=== PATIENT | male | born 1935 | race Caucasian/White ===

== ENCOUNTER 2017-10-30 15:59 | Inpatient (IN) | payer OTHER ==
[2017-10-30 17:50] LABS: Absolute Lymphocytes (CBC) 0.4 K/uL (0.7-4.9); Absolute Monocytes 0.3 K/uL (0.1-1.3); Absolute Neutrophil 0.8 K/uL (1.8-8.0); Basophils % 0.5 % (0-1.3); Eosinophils % 0.7 % (0-4.4); Hematocrit 39.2 % (39.6-49.0); Lymphocytes % 25.8 % (15.3-44.8); MCH 30.6 pg (27.0-35.0); MCV 92.9 fL (80-100); MPV 9.1 fL (7.6-11.3); Monocytes % 20.4 % (3.3-12.3); RBC Red Blood Cell Count 4.23 M/uL (4.33-5.43)
[2017-10-30 18:08] LABS: Albumin 4.5 g/dL (3.2-5.5); Bilirubin Direct 0.1 mg/dL (0-0.2); Bilirubin Total 0.9 mg/dL (0.3-1.2); Protein, Total 7.7 g/dL (6.0-8.3)
[2017-10-30 18:09] LABS: Potassium 5.5 mEq/L (3.6-5.0)
[2017-10-30 18:13] LABS: Protime INR 1.65
--- NOTE | 2017-10-30 18:21 | RAD REPORT ---
EXAM DESCRIPTION: RAD - Chest Single View - 10/30/2017 6:15 pm CLINICAL HISTORY: Chest pain. COMPARISON: 09/03/2017 FINDINGS: Portable technique limits examination quality. Emphysematous changes are present bilaterally. Postsurgical clips are also present. The heart is norm al in size. No displaced fractures. IMPRESSION: No acute intrathoracic process suspected.
[2017-10-30 18:27] LABS: CKMB Creatine Kinase MB 3.9 ng/ml (0.3-4.0)
[2017-10-30 18:43] LABS: Platelet Estimate ADEQ; Platelets, Giant FEW
[2017-10-30 18:44] LABS: Anisocytosis SLIGHT; Blood Morphology Comment NOTED (NOT SEEN)
--- NOTE | 2017-10-30 19:30 | ER ---
Nurse's Notes [facility] Name: Viral Kim Age: 82 yrs Sex: Male : 1935 Arrival Date: 10/30/2017 Time: 16:02 Bed 14 Private MD: Diagnosis: Hypomagnesemia;Hyperkalemia;Weakness Presentation: 10/30 16:16 Presenting complaint: Patient states: from [facility], for days now, he is a getting a hj little weaker, loss of appetite; denies fever and chills; denies abd pain;. Transition of care: patient was not received from another setting of care. Onset of symptoms was October 30, 2017. Care prior to arrival: None. 16:16 Method Of Arrival: Ambulatory 16:16 Acuity: BONG 3 hj Triage Assessment: 16:24 General: Appears in no apparent distress. uncomfortable, Behavior is calm, cooperative, hj appropriate for age. Pain: Denies pain. Historical: - Allergies: 16:23 No Known Allergies; hj - Home Meds: 16:23 acetaminophen 325 mg Oral tab 2 tabs every 6 hours for temp or pain [Active]; hj atorvastatin 40 mg Oral tab [Active]; donepezil 10 mg Oral tab 1 tab twice a day [Active]; Eliquis 5 mg Oral tab 1 tab 2 times per day [Active]; Fish Oil 1,000 mg Oral cap [Active]; lisinopril 5 mg Oral tab [Active]; memantine 10 mg Oral tab 0.5 tab 2 times per day [Active]; metoprolol tartrate 25 mg Oral tab 0.5 tab 2 times per day [Active]; Multiple Vitamins Oral tab 1 tab daily [Active]; pantoprazole 40 mg Oral TbEC 1 tab once daily [Active]; ProAir HFA 90 mcg/actuation inhalation HFAA 1 puff every 4 hours for Breathing [Active]; Symbicort inhalation [Active]; metformin 500 mg Oral tr24 1 tab three times a day [Active]; - PMHx: 16:23 AAA; COPD; CVA; Depression; Diabetes - NIDDM; DVT; Left Femur; Lung CA; hj - PSHx: 16:23 Lobectomy; Hip replacement; Left Femur (Chuy Placement); hj - Immunization history:: Adult Immunizations up to date. - Social history:: Smoking status: Patient/guardian denies using tobacco. - Hospitalizations: : No recent hospitalization is reported. - History obtained from: friend. Screenin:40 Abuse screen: Denies threats or abuse. Denies injuries from another. Nutritional aj1 screening: No deficits noted. Tuberculosis screening: No symptoms or risk factors identified. 22:08 Fall Risk Fall in past 12 months (25 points). Secondary diagnosis (15 points) dementia, aj1 IV access (20 points). Ambulatory Aid- None/Bed Rest/Nurse Assist (0 pts). Gait- Impaired (20 pts.). Mental Status- Overestimates/Forgets Limitations (15 pts.). Total Cash Fall Scale indicates High Risk Score (45 or more points). Frequent Obs/Assessments Occuring Family Present and informed to notify staff if the need to leave the bedside As available patient and family educated on Fall Prevention Program and Strategies. Assessment: 16:50 General: Appears in no apparent distress. uncomfortable, Behavior is calm, cooperative, aj1 appropriate for age. Pain: Denies pain. Neuro: Level of Consciousness is awake, alert, obeys commands, [employer] are equal bilaterally Moves all extremities. Full function Speech is normal, Facial symmetry appears normal, Reports weakness to entire body Patient's family states that they have found him on the floor twice in the past few weeks. Denies blurred vision numbness headache. Cardiovascular: Denies chest pain, palpitations, shortness of breath, Heart tones S1 S2 present Patient's skin is warm and dry. Rhythm is regular. Respiratory: Airway is patent Respiratory effort is even, unlabored, Respiratory pattern is regular, symmetrical. GI: No signs and/or symptoms were reported involving the gastrointestinal system. : No signs and/or symptoms were reported regarding the genitourinary system. EENT: No signs and/or symptoms were reported regarding the EENT system. Derm: Skin is pink, warm \\T\\ dry. normal, Parent/caregiver reports the patient having patient was looking "pale and ashen" earlier and they were advised by staff at [facility] to take patient to the ER for evaluation. States that patient has not wanted to leave his room at all, he does not want to go to the day room and he does not want to go to the dining room for meals and has in general not been acting like himself for the past 2 weeks. Musculoskeletal: No signs and/or symptoms reported regarding the musculoskeletal system. Circulation, motion, and sensation intact. Vital Signs: 16:24 BP 123 / 59; Pulse 77; Resp 20; Temp 98.7(O); Pulse Ox 95% on R/A; Weight 80.29 kg; hj Height 5 ft. 11 in. (180.34 cm); Pain 0/10; 17:15 BP 127 / 67; Pulse 75; Resp 18; Pulse Ox 94% ; aj1 18:15 BP 129 / 61; Pulse 61; Resp 28; Pulse Ox 96% ; aj1 18:50 BP 132 / 63; Pulse 78; Resp 28; Pulse Ox 95% ; aj1 20:45 BP 147 / 68; Pulse 77; Resp 22; Pulse Ox 94% ; aj1 21:45 BP 139 / 66; Pulse 71; Resp 24; Temp 97.9(TE); Pulse Ox 95% on R/A; aj1 16:24 Body Mass Index 24.69 (80.29 kg, 180.34 cm) ED Course: 16:02 Patient arrived in ED. mr 16:20 Triage completed. hj 16:24 Arm band placed on right wrist. hj 16:46 Bhavya Mayers, RN is Primary Nurse. aj1 16:50 Patient has correct armband on for positive identification. Bed in low position. Call aj1 light in reach. Side rails up X 1. Adult w/ patient. classroom monitor on. Pulse ox on. NIBP on. 16:50 No provider procedures requiring assistance completed. aj1 17:17 [facility] kav 17:17 Guevara Mccormick MD is Attending Physician. kav 17:35 EKG done, by weatherseal technician. reviewed by Guevara Mccormick MD. tc 18:14 X-ray completed. Portable x-ray completed in exam room. Patient tolerated procedure kc2 well. 19:13 Inserted saline lock: 22 gauge in right antecubital area, using aseptic technique. mh5 Blood collected. 19:28 Sundar Infante MD is Hospitalizing Provider. kav 22:08 Patient admitted, IV remains in place. aj1 Administered Medications: 19:32 Drug: Magnesium Sulfate 2 grams Route: IVPB; Infused Over: 2 hrs; Site: right aj1 antecubital; 22:00 Follow up: IV Status: Completed infusion; IV Intake: 50ml [facility] 19:32 Drug: NS 0.9% 1000 ml Route: IV; Rate: 100 ml/hr; Site: right antecubital; aj1 :02 Follow up: IV Status: Completed infusion; IV Intake: 1000ml [facility] 19:32 Drug: Kayexalate 30 grams Route: PO; aj1 22:02 Follow up: Response: No adverse reaction aj Point of Care Testing: Blood Glucose: 19:43 Blood Glucose: 96 mg/dL; mt Ranges: Intake: 22:00 IV: 50ml; Total: 50ml. aj1 22:02 IV: 1000ml; Total: 1050ml. aj Outcome: 19:29 Decision to Hospitalize by Provider. ka 22:09 Admitted to [facility] accompanied by karely, via stretcher, Report called to RAJI Brunner on 4th [facility] floor 22:09 Condition: stable 22:09 Discharge instructions given to patient, family, Instructed on the need for admit, Demonstrated understanding of instructions. 22:09 Patient left the ED. aj Signatures: Bhavya Mayers RN RN aj1 Alexandra Camargo, SHOT HOLE SHOOTER SHOT HOLE SHOOTER Maritza Bundy mr Joaquina Garnerfany, top lift trimmer EKG Ttc Norberto Reyes RN Tereza Rodriguez Maria [facility] Aline Bills ia Corrections: (The following items were deleted from the chart) 18:48 18:40 General: Appears in no apparent distress. uncomfortable, Behavior is calm, aj1 cooperative, appropriate for age, aj1 18:48 18:40 Pain: Denies pain. aj1 aj1 18:48 18:40 Neuro: Level of Consciousness is awake, alert, obeys commands, [employer] are equal aj1 bilaterally Moves all extremities. Full function Speech is normal, Facial symmetry appears normal, Reports weakness to entire body Patient's family states that they have found him on the floor twice in the past few weeks. Denies blurred vision numbness headache aj1 18:48 18:40 Cardiovascular: Denies chest pain, palpitations, shortness of breath, Heart tones aj1 S1 S2 present Patient's skin is warm and dry. Rhythm is regular aj1 18:48 18:40 Respiratory: Airway is patent Respiratory effort is even, unlabored, Respiratory aj1 pattern is regular, symmetrical, aj1 :48 18:40 GI: No signs and/or symptoms were reported involving the gastrointestinal system. aj1 aj1 :48 18:40 : No signs and/or symptoms were reported regarding the genitourinary system. aj1aj1 18:48 18:40 EENT: No signs and/or symptoms were reported regarding the EENT system. aj1 aj1 18:48 18:40 Derm: Skin is pink, warm \\T\\ dry. normal, Parent/caregiver reports the patient aj1 having patient was looking "pale and ashen" earlier and they were advised by staff at [facility] to take patient to the ER for evaluation. States that patient has not wanted to leave his room at all, he does not want to go to the day room and he does not want to go to the dining room for meals and has in general not been acting like himself for the past 2 weeks aj1 18:48 18:40 Musculoskeletal: No signs and/or symptoms reported regarding the musculoskeletal aj1 system. Circulation, motion, and sensation intact. aj1
--- NOTE | 2017-10-30 19:30 | EDPHYS ---
Physician Documentation [facility] Name: Viral Kim Age: 82 yrs Sex: Male : 1935 Arrival Date: 10/30/2017 Time: 16:02 Bed 14 Private MD: ED Physician Guevara Mccormick HPI: 10/30 17:16 This 82 yrs old Male presents to ER via Ambulatory with complaints of kav Weakness, Decreased Appetite. 19:01 generalized weakness and decreased appetite from assisted living faciltiy. Onset: The kav symptoms/episode began/occurred acutely, 1 week(s) ago. Severity of symptoms: At their worst the symptoms were mild 2 day(s) ago, in the emergency department the symptoms are unchanged. The patient has not experienced similar symptoms in the past. The patient has not recently seen a physician. 82 y/o male patient from assisted living facility who has chief c/o acute onset of generalized weakness and decreased appetite x 1 week. Historical: - Allergies: 16:23 No Known Allergies; hj - Home Meds: 16:23 acetaminophen 325 mg Oral tab 2 tabs every 6 hours for temp or pain [Active]; hj atorvastatin 40 mg Oral tab [Active]; donepezil 10 mg Oral tab 1 tab twice a day [Active]; Eliquis 5 mg Oral tab 1 tab 2 times per day [Active]; Fish Oil 1,000 mg Oral cap [Active]; lisinopril 5 mg Oral tab [Active]; memantine 10 mg Oral tab 0.5 tab 2 times per day [Active]; metoprolol tartrate 25 mg Oral tab 0.5 tab 2 times per day [Active]; Multiple Vitamins Oral tab 1 tab daily [Active]; pantoprazole 40 mg Oral TbEC 1 tab once daily [Active]; ProAir HFA 90 mcg/actuation inhalation HFAA 1 puff every 4 hours for Breathing [Active]; Symbicort inhalation [Active]; metformin 500 mg Oral tr24 1 tab three times a day [Active]; - PMHx: 16:23 AAA; COPD; CVA; Depression; Diabetes - NIDDM; DVT; Left Femur; Lung CA; hj - PSHx: 16:23 Lobectomy; Hip replacement; Left Femur (Chuy Placement); hj - Immunization history:: Adult Immunizations up to date. - Social history:: Smoking status: Patient/guardian denies using tobacco. - Hospitalizations: : No recent hospitalization is reported. - History obtained from: friend. ROS: 19:26 Constitutional: Negative for fever, chills, and weight loss, Eyes: Negative for injury, kav pain, redness, and discharge, ENT: Negative for injury, pain, and discharge, Neck: Negative for injury, pain, and swelling, Cardiovascular: Negative for chest pain, palpitations, and edema, Respiratory: Negative for shortness of breath, cough, wheezing, and pleuritic chest pain, Back: Negative for injury and pain, MS/Extremity: Negative for injury and deformity, Skin: Negative for injury, rash, and discoloration, Neuro: Negative for headache, weakness, numbness, tingling, and seizure, Psych: Negative for depression, anxiety, suicide ideation, homicidal ideation, and hallucinations, Allergy/Immunology: Negative for hives, rash, and allergies, Endocrine: Negative for neck swelling, polydipsia, polyuria, polyphagia, and marked weight changes, Hematologic/Lymphatic: Negative for swollen nodes, abnormal bleeding, and unusual bruising. 19:26 Constitutional: Positive for generalized weakness. 19:26 Abdomen/GI: Positive for loss of appetite. Exam: 19:26 Constitutional: This is a well developed, well nourished patient who is awake, alert, kav and in no acute distress. Head/Face: Normocephalic, atraumatic. Eyes: Pupils equal round and reactive to light, extra-ocular motions intact. Lids and lashes normal. Conjunctiva and sclera are non-icteric and not injected. Cornea within normal limits. Periorbital areas with no swelling, redness, or edema. ENT: Nares patent. No nasal discharge, no septal abnormalities noted. Tympanic membranes are normal and external auditory canals are clear. Oropharynx with no redness, swelling, or masses, exudates, or evidence of obstruction, uvula midline. Mucous membranes moist. Neck: Trachea midline, no thyromegaly or masses palpated, and no cervical lymphadenopathy. Supple, full range of motion without nuchal rigidity, or vertebral point tenderness. No Meningismus. Chest/axilla: Normal chest wall appearance and motion. Nontender with no deformity. No lesions are appreciated. Cardiovascular: Regular rate and rhythm with a normal S1 and S2. No gallops, murmurs, or rubs. Normal PMI, no JVD. No pulse deficits. Respiratory: Lungs have equal breath sounds bilaterally, clear to auscultation and percussion. No rales, rhonchi or wheezes noted. No increased work of breathing, no retractions or nasal flaring. Abdomen/GI: Soft, non-tender, with normal bowel sounds. No distension or tympany. No guarding or rebound. No evidence of tenderness throughout. Skin: Warm, dry with normal turgor. Normal color with no rashes, no lesions, and no evidence of cellulitis. MS/ Extremity: Pulses equal, no cyanosis. Neurovascular intact. Full, normal range of motion. Neuro: Awake and alert, GCS 15, oriented to person, place, time, and situation. Cranial nerves II-XII grossly intact. Motor strength 5/5 in all extremities. Sensory grossly intact. Cerebellar exam normal. Normal gait. Psych: Awake, alert, with orientation to person, place and time. Behavior, mood, and affect are within normal limits. Vital Signs: 16:24 BP 123 / 59; Pulse 77; Resp 20; Temp 98.7(O); Pulse Ox 95% on R/A; Weight 80.29 kg; hj Height 5 ft. 11 in. (180.34 cm); Pain 0/10; 17:15 BP 127 / 67; Pulse 75; Resp 18; Pulse Ox 94% ; aj1 18:15 BP 129 / 61; Pulse 61; Resp 28; Pulse Ox 96% ; aj1 18:50 BP 132 / 63; Pulse 78; Resp 28; Pulse Ox 95% ; aj1 20:45 BP 147 / 68; Pulse 77; Resp 22; Pulse Ox 94% ; aj1 21:45 BP 139 / 66; Pulse 71; Resp 24; Temp 97.9(TE); Pulse Ox 95% on R/A; aj1 16:24 Body Mass Index 24.69 (80.29 kg, 180.34 cm) MDM: 17:17 Patient medically screened. formerly [facility] 19:26 Data reviewed: vital signs, nurses notes, lab test result(s), CBC, electrolytes, EKG, ka radiologic studies. 10/30 17:17 Order name: Amylase, Serum formerly [facility] 10/30 17:17 Order name: Basic Metabolic Panel formerly [facility] 10/30 17:17 Order name: CBC with Diff 10/30 17:17 Order name: Creatinine for Radiology 10/30 17:17 Order name: Hepatic Function 10/30 17:17 Order name: Lipase 10/30 17:17 Order name: Urine Microscopic Only 10/30 17:32 Order name: BNP 10/30 17:32 Order name: Ckmb 10/30 17:32 Order name: CPK 10/30 17:32 Order name: Magnesium 10/30 17:32 Order name: PT-INR 10/30 17:32 Order name: Ptt, Activated 10/30 17:32 Order name: Troponin (emerg Dept Use Only) 10/30 17:32 Order name: XRAY Chest (1 view) 10/30 17:57 Order name: Basic Metabolic Panel; Complete Time: 18:48 EDMS 10/30 18:49 Interpretation: BUN 54; CRE 3.35; GFR 18; K 5.5. 10/30 17:57 Order name: Lipase; Complete Time: 18:47 EDMS 10/30 18:47 Interpretation: Within normal limits. 10/30 17:58 Order name: CBC with Automated Diff; Complete Time: 18:48 EDMS 10/30 18:50 Interpretation: WBC 1.6; RBC 4.23; HGB 12.9; HCT 39.2; RDW 16.2; MN% 20.4; NEUT A 0.8; kav LYMA 0.4. 10/30 18:01 Order name: Creatinine (Radiology Only); Complete Time: 18:48 EDMS 10/30 18:50 Interpretation: CRE 3.21; GFR 19. 10/30 18:08 Order name: Liver (Hepatic) Function; Complete Time: 18:47 EDMS 10/30 18:47 Interpretation: Within normal limits. 10/30 18:08 Order name: Amylase Level; Complete Time: 18:47 EDMS 10/30 18:47 Interpretation: Within normal limits. 10/30 18:11 Order name: BNP B-Type Natriuretic Peptide; Complete Time: 18:47 EDMS 10/30 18:47 Interpretation: Within normal limits. 10/30 18:21 Order name: Protime (+INR); Complete Time: 18:48 EDMS 10/30 18:50 Interpretation: Normal except: PT 19.6. kav 10/30 18:21 Order name: PTT, Activated Partial Thromb; Complete Time: 18:48 EDMS 10/30 18:48 Interpretation: Within normal limits. v 10/30 18:22 Order name: RAD; Complete Time: 18:48 EDMS 10/30 18:48 Interpretation: No acute disease. v 10/30 18:23 Order name: Creatine Phosphokinase; Complete Time: 18:48 EDMS 10/30 18:48 Interpretation: Within normal limits. v 10/30 18:25 Order name: Troponin (Emerg Dept Use Only); Complete Time: 18:48 EDMS 10/30 18:48 Interpretation: Within normal limits. v 10/30 18:27 Order name: CKMB Creatine Kinase MB; Complete Time: 18:48 EDMS 10/30 18:48 Interpretation: Within normal limits. v 10/30 18:41 Order name: Magnesium; Complete Time: 18:47 EDMS 10/30 18:47 Interpretation: Abnormal: MG 1.0. v 10/30 18:44 Order name: Manual Differential; Complete Time: 18:46 EDMS 10/30 18:47 Interpretation: Normal except: BANDS [F] 5; MONO 12. kav 10/30 17:17 Order name: IV Saline Lock; Complete Time: 17:43 kav 10/30 17:17 Order name: Labs collected and sent; Complete Time: 17:43 kav 10/30 17:32 Order name: EKG; Complete Time: 17:32 kav 10/30 17:32 Order name: Cardiac monitoring; Complete Time: 17:42 kav 10/30 17:32 Order name: EKG - Nurse/Tech; Complete Time: 17:42 kav 10/30 17:32 Order name: O2 Per Protocol; Complete Time: 17:42 kav 10/30 17:32 Order name: O2 Sat Monitoring; Complete Time: 17:43 kav Administered Medications: 19:32 Drug: Magnesium Sulfate 2 grams Route: IVPB; Infused Over: 2 hrs; Site: right aj1 antecubital; 22:00 Follow up: IV Status: Completed infusion; IV Intake: 50ml [facility] 19:32 Drug: NS 0.9% 1000 ml Route: IV; Rate: 100 ml/hr; Site: right antecubital; [facility] 22:02 Follow up: IV Status: Completed infusion; IV Intake: 1000ml [facility] 19:32 Drug: Kayexalate 30 grams Route: PO; [facility] 22:02 Follow up: Response: No adverse reaction [facility] Point of Care Testing: Blood Glucose: 19:43 Blood Glucose: 96 mg/dL; mt Ranges: Critical Glucose Levels:Adult <50 mg/dl or >400 mg/dl <40 mg/dl or >180 mg/dl Disposition: 10/31 07:19 Co-signature as Attending Physician, Guevara Mccormick MD I agree with the assessment and kdr plan of care. Disposition: 10/30/17 19:29 Hospitalization ordered by Sundar Infante for Observation. Preliminary diagnosis are Hypomagnesemia, Hyperkalemia, Weakness. - Bed requested for Telemetry/MedSurg (observation). - Status is Observation. aj1 - Condition is Fair. - Problem is new. - Symptoms are unchanged. UTI on Admission? No Signatures: Dispatcher [employer] Bhavya Wallace RN RN aj1 eMrry Rainey RN Guevara Holden MD MD kdr Vern, Katherine, ESCORT VEHICLE DRIVER ESCORT VEHICLE DRIVER Norberto Renner RN RN
[2017-10-30] MEDS ORDERED: NA CHLORIDE 0.9% 1,000 ML ONE (19:38)
[2017-10-30] MEDS ORDERED: SOD POLYSTYREN SUL 15 GM/60 ML UCUP ONE (19:38)
[2017-10-30] MEDS ORDERED: Magnesium Sulfate 2gm IVPB 2 G/50 ML BAG IV ONE (19:40)
--- NOTE | 2017-10-30 21:28 | P.HP ---
Certification for Inpatient Patient admitted to: Observation With expected LOS: <2 Midnights Practitioner: I am a practitioner with admitting privileges, knowledge of patient current condition, hospital course, and medical plan of care. Services: Services provided to patient in accordance with Admission requirements found in Title 42 Section 412.3 of the Code of Federal Regulations Patient History Date of Service: 10/30/17 Reason for admission: failure to thrive, volume depletion, hypomagnesemia History of Present Illness: Mr Kim is an 82 years old male with history of AAA, HTN, COPD, lung cancer s/p lobectomy, anticoagulated with Eliquis due to history of DVT, resident of an assisted living facility, who start about 2 weeks with progressive weakness and poor appetite. His family has noticed that he has been more depress lately. There are no history of fever, chills, chest pain, SOB, nausea or vomiting. Lab work in ED remarkable for leukopenia, hyperkalemia, hypomagnesemia, and elevated creatinine level consistent with acuter renal injury. CXR shows no acute abnormalities, UA still pending. Allergies No Known Allergies Allergy (Unverified 09/12/16 17:34) Home Medications: Albuterol Inhaler [Ventolin Inhaler*] 2 puff IH Q4H PRN 09/12/16 Atorvastatin Calcium [Lipitor*] 10 mg PO BEDTIME 09/12/16 Budesonide/Formoterol Fumarate [Symbicort 80-4.5 Mcg Inhaler] 2 puff IH BID 08/28 Donepezil HCl [Aricept] 10 mg PO BEDTIME 09/12/16 Lisinopril [Prinivil*] 10 mg PO DAILY 09/12/16 Memantine HCl [Namenda*] 5 mg PO BID 09/12/16 Metoprolol Tartrate [Lopressor*] 12.5 mg PO BID 09/12/16 Multivitamin [Daily Multivitamin] 1 each PO DAILY 09/12/16 [place]-3 Fatty Acids [Fish Oil] 1,000 mg PO DAILY 09/12/16 Pantoprazole Sodium [Protonix] 40 mg PO DAILY 09/12/16 Warfarin Sodium [Coumadin*] 7.5 mg PO SEECOM 09/12/16 Warfarin Sodium [Coumadin] 5 mg PO SEECOM 10/13/16 - Past Medical/Surgical History Diabetic: Yes -: COPD -: HTN -: Lung Ca -: Aortic aneurism -: stroke 2010 -: dementia -: 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 moist/pink, EOMI, Sclerae nonicteric Neck: Supple, 2+ carotid pulse no bruit, No LAD, Without JVD or thyroid abnormality Respiratory: Clear to auscultation bilaterally, Diminished Cardiovascular: Regular rate/rhythm, Normal S1 S2 Gastrointestinal: Normal bowel sounds, No tenderness Musculoskeletal: No tenderness Integumentary: No rashes Neurological: Normal speech, Normal strength at 5/5 x4 extr, Normal tone, Abnormal affect (flat) Lymphatics: No axilla or inguinal lymphadenopathy - Studies Laboratory Data (last 24 hrs) 10/30/17 17:30: PT 19.6 H, INR 1.65, APTT 33.6 10/30/17 17:30: Magnesium 1.0 L* 10/30/17 17:30: B-Natriuretic Peptide 93 10/30/17 17:30: Creatinine 3.21 H 10/30/17 17:30: WBC 1.6 L*, Hgb 12.9 L, Hct 39.2 L, Plt Count 218 10/30/17 17:30: Sodium 142, Potassium 5.5 H, BUN 54 H, Creatinine 3.35 H, Glucose 120, Total Bilirubin 0.9, AST 27, ALT 19, Alkaline Phosphatase 87, Amylase 37, Lipase 27 Assessment and Plan - Problems (Diagnosis) (1) Failure to thrive Current Visit: Yes Status: Acute Qualifiers: Failure to thrive age range: in adult Qualified Code(s): R62.7 - Adult failure to thrive (2) Acute renal injury Current Visit: Yes Status: Acute (3) Hypomagnesemia Current Visit: Yes Status: Acute (4) Hyperkalemia Current Visit: Yes Status: Acute (5) Chronic obstructive pulmonary disease Current Visit: No Status: Chronic Qualifiers: COPD type: unspecified COPD Qualified Code(s): J44.9 - Chronic obstructive pulmonary disease, unspecified (6) Essential hypertension Current Visit: No Status: Chronic (7) History of lung cancer Current Visit: No Status: Chronic (8) Hx pulmonary embolism Current Visit: No Status: Chronic - Plan The patient will be admitted to the hospital due to generalized weakness, volume depletion, electrolyte disturbance and acute renal injury. Seems to be that the patient is depress. Will continue with IV fluids, replace electrolytes per protocol, order PT. He eventually come back to assisted living facility in AM if symptoms improves. - Advance Directives Does patient have a Living Will: Yes Does patient have a Durable POA for Healthcare: Yes - Code Status/Comfort Care Code Status Assessed: Yes Code Status: Do Not Resuscitate
[2017-10-30 22:24] VITALS: BMI 22.1
[2017-10-30] MEDS ORDERED: ACETAMINOPHEN 500 MG TAB PO PRN (22:44)
[2017-10-30] MEDS: NA CHLORIDE 0.9% 1,000 ML IV SCH (22:44)
[2017-10-30] MEDS ORDERED: ONDANSETRON 4 MG/2 ML VIAL IV PRN (22:44)
[2017-10-31] MEDS ORDERED: Magnesium Sulfate 2gm IVPB 2 G/50 ML BAG IV ONE (03:30)
[2017-10-31] MEDS: NA CHLORIDE 0.9% 1,000 ML IV SCH ×4 (03:46→19:44)
[2017-10-31 06:02] LABS: Absolute Lymphocytes (CBC) 0.7 K/uL (0.7-4.9); Absolute Monocytes 0.6 K/uL (0.1-1.3); Absolute Neutrophil 0.5 K/uL (1.8-8.0); Basophils % 0.3 % (0-1.3); Eosinophils % 1.2 % (0-4.4); Hematocrit 34.6 % (39.6-49.0); Lymphocytes % 39.6 % (15.3-44.8); MCH 31.2 pg (27.0-35.0); MCV 92.3 fL (80-100); MPV 8.9 fL (7.6-11.3); Monocytes % 31.5 % (3.3-12.3); RBC Red Blood Cell Count 3.75 M/uL (4.33-5.43)
[2017-10-31 06:17] LABS: Potassium 4.8 mEq/L (3.6-5.0)
--- NOTE | 2017-10-31 07:26 | EKG ---
Test Date: 2017-10-30 Test Time: 17:27:29 Shoe Planner: SEDRICK MEASUREMENT RESULTS: Intervals: Rate: 75 TX: 122 QRSD: 80 QT: 366 QTc: 408 [place]: P: 64 [place]: 122 QRS: 67 T: 64 INTERPRETIVE STATEMENTS: Normal sinus rhythm Normal ECG Compared to ECG 10/12/2016 22:29:47 Sinus bradycardia no longer present Sinus arrhythmia no longer present Electronically Signed On 10-31-17 07:25:24 CDT by Allen Bradley
[2017-10-31 07:53] LABS: Blood Morphology Comment NOT SEEN (NOT SEEN); Platelet Estimate ADEQ
[2017-10-31] MEDS ORDERED: HOME MED 1 EA UNK (Budesonide/Formoterol Fumarate [Symbicort 80-4.5 Mcg Inhaler] 2 PUFF) IH SCH (09:00)
[2017-10-31] MEDS: MEMANTINE HCL 10 MG TABLET PO SCH ×2 (09:55→20:07)
[2017-10-31] MEDS: DONEPEZIL HCL 5 MG TAB PO SCH ×2 (09:55→20:07)
[2017-10-31] MEDS: LISINOPRIL 5 MG TAB PO SCH (09:55)
[2017-10-31] MEDS: APIXABAN 5 MG TABLET PO SCH ×2 (09:56→20:07)
[2017-10-31] MEDS: METOPROLOL TAR 25 MG TAB PO SCH ×2 (09:56→20:15)
[2017-10-31] MEDS: PANTOPRAZOLE 40MG TABLET PO SCH (09:56)
[2017-10-31] MEDS: DOCOSAHEXANOIC AC/EPA 1000 MG PO SCH (09:56)
[2017-10-31] MEDS: MULTIVIT W/ MINERAL TAB PO SCH (09:56)
[2017-10-31 12:02] LABS: Thyroid Stimulating Hormone 3.89 uIU/mL (0.34-5.60)
[2017-10-31 14:14] VITALS: O2SAT 97
--- NOTE | 2017-10-31 14:18 | P.PN ---
Subjective Date of Service: 10/31/17 Primary Care Provider: [facility] Chief Complaint: failure to thrive, volume depletion, hypomagnesemia Subjective: Demented Physical Examination - Vital Signs Temperature: 97.0 F Blood Pressure: 146/66 Pulse: 75 Respirations: 18 Pulse Ox (%): 97 - Physical Exam General: Alert, In no apparent distress, Cooperative, Demented HEENT: Atraumatic Neck: Supple Respiratory: Clear to auscultation bilaterally, Normal air movement Cardiovascular: Normal pulses, Regular rate/rhythm Gastrointestinal: Normal bowel sounds, Soft and benign, Non-distended Musculoskeletal: No tenderness, No warmth, Other (Muscle wasting to the upper and lower extremities) Neurological: Normal strength at 5/5 x4 extr, Normal tone, Dementia - Studies Laboratory Data (last 24 hrs) 10/30/17 17:30: PT 19.6 H, INR 1.65, APTT 33.6 10/30/17 17:30: Magnesium 1.0 L* 10/30/17 17:30: B-Natriuretic Peptide 93 10/30/17 17:30: Creatinine 3.21 H 10/30/17 17:30: WBC 1.6 L*, Hgb 12.9 L, Hct 39.2 L, Plt Count 218 10/30/17 17:30: Sodium 142, Potassium 5.5 H, BUN 54 H, Creatinine 3.35 H, Glucose 120, Total Bilirubin 0.9, AST 27, ALT 19, Alkaline Phosphatase 87, Amylase 37, Lipase 27 Medications List Reviewed: Yes Assessment & Plan - Problems (Diagnosis) (1) Hyperlipidemia Current Visit: Yes Status: Chronic Plan: Will continue with medication Qualifiers: Hyperlipidemia type: unspecified Qualified Code(s): E78.5 - Hyperlipidemia , unspecified (2) GERD (gastroesophageal reflux disease) Current Visit: Yes Status: Chronic Plan: Will continue with medication. Qualifiers: Esophagitis presence: esophagitis presence not specified Qualified Code(s) : K21.9 - Gastro-esophageal reflux disease without esophagitis (3) Malnutrition Current Visit: Yes Status: Acute Plan: Patient with malnutrition. Will have dietary assess intake. Will continue with IV fluids. Case discussed at length with medical power of manager mining. Patient is DNR. Medical power of manager mining reports the patient gets dehydrated from time to time. I was able to discuss with her about the possibility of hospice. Will have certified social workers in health care address this further. (4) Chronic renal disease Current Visit: Yes Status: Acute Plan: Patient with acute on chronic renal disease likely from malnutrition and poor intake. Will continue with IV fluids. Dietary consulted. Will monitor closely. Qualifiers: Chronic kidney disease stage: stage 4 (severe) Qualified Code(s): N18.4 - Chronic kidney disease, stage 4 (severe) (5) Acute renal injury Onset Date: 10/31/17 Current Visit: Yes Status: Acute Plan: Likely from dehydration. Will continue monitor closely. (6) Failure to thrive Onset Date: 10/31/17 Current Visit: Yes Status: Acute Plan: Continue with above plan of care. Will need to consider hospice. Qualifiers: Failure to thrive age range: in adult Qualified Code(s): R62.7 - Adult failure to thrive (7) Essential hypertension Onset Date: 10/31/17 Current Visit: Yes Status: Chronic Plan: Will continue with his home medication. (8) Chronic anticoagulation Current Visit: Yes Status: Chronic Plan: Will continue with anti coagulation therapy. Patient with history of DVT and PE. (9) Hyperkalemia Onset Date: 10/31/17 Current Visit: Yes Status: Chronic Plan: This has improved. Will continue monitor closely. (10) Hypomagnesemia Onset Date: 10/31/17 Current Visit: Yes Status: Acute Plan: Will monitor and replace appropriately. Replacement protocol in place. (11) Chronic obstructive pulmonary disease Onset Date: 10/31/17 Current Visit: Yes Status: Chronic Plan: Will continue with COPD treatment. Qualifiers: COPD type: unspecified COPD Qualified Code(s): J44.9 - Chronic obstructive pulmonary disease, unspecified (12) History of lung cancer Current Visit: No Status: Chronic Plan: Patient with history of lung cancer. Will continue with COPD treatment. Will address further with medical power of manager mining about hospice. Especially if the patient is not taking good oral intake. Dietary consulted. (13) Hx pulmonary embolism Current Visit: No Status: Chronic Plan: Will continue with chronic anti coalition therapy. (14) AAA (abdominal aortic aneurysm) Current Visit: Yes Status: Chronic Plan: 10 x 5 x 8 cm infrarrenal aortic aneurysm history. Qualifiers: Presence of rupture: without rupture Qualified Code(s): I71.4 - Abdominal aortic aneurysm, without rupture Discharge Plan: Other (Assisted living facility) Plan to discharge in: 24 Hours - Code Status/Comfort Care Code Status Assessed: Yes Time Spent Managing Pts Care (In Minutes): 55
[2017-10-31 16:12] LABS: Urine Appearance CLEAR; Urine Bilirubin NEGATIVE (NEG); Urine Blood NEGATIVE (NEG); Urine Color YELLOW; Urine Glucose NEGATIVE (NEG); Urine Protein NEGATIVE (NEG); Urine Specific Gravity 1.015 (1.005-1.030); Urine Urobilinogen 0.2 mg/dL (0.2-1.0)
[2017-10-31 16:13] LABS: Urine Microscopic Reflex NO UMIC
[2017-10-31] MEDS: Budesonide/Formoterol Fumarate (Symbicort) 80-4.5 Mcg Inhaler IH SCH (20:06)
[2017-10-31] MEDS: ATORVASTATIN 10 MG TAB PO SCH (20:07)
[2017-11-01] MEDS: NA CHLORIDE 0.9% 1,000 ML IV SCH ×2 (05:07→14:44)
[2017-11-01 06:18] LABS: Absolute Lymphocytes (CBC) 0.5 K/uL (0.7-4.9); Absolute Monocytes 0.5 K/uL (0.1-1.3); Absolute Neutrophil 0.9 K/uL (1.8-8.0); Basophils % 0.2 % (0-1.3); Eosinophils % 2.2 % (0-4.4); Hematocrit 31.2 % (39.6-49.0); Lymphocytes % 25.2 % (15.3-44.8); MCH 31.4 pg (27.0-35.0); MCV 91.6 fL (80-100); Monocytes % 26.2 % (3.3-12.3); RBC Red Blood Cell Count 3.41 M/uL (4.33-5.43)
[2017-11-01 06:31] LABS: Magnesium 1.6 mg/dL (1.8-2.5); Potassium 4.3 mEq/L (3.6-5.0)
[2017-11-01] MEDS ORDERED: MAGNESIUM SULFATE 1 gm IVPB 1 GM/100 ML BAG IV ONE (07:00)
--- NOTE | 2017-11-01 07:52 | RAD REPORT ---
EXAM DESCRIPTION: US - Renal Ultrasound-Complete - 11/01/2017 7:19 am CLINICAL HISTORY: Chronic renal disease COMPARISON: CT study of October 2016 FINDINGS: The right kidney measures 9.7 x 4.9 x 5.5 cm. The left kidney measures 11.0 x 6.1 x 5.5 c m. Renal cortical thickness and echogenicity are within limits of normal. No hydronephrosis or suspic ious renal mass. Curvilinear echogenic focus lower pole left kidney is seen. This matches calcificati ons seen on the October 2016 imaging. IMPRESSION: No hydronephrosis or suspicious renal mass. No significant medical renal disease based on ultrasound criteria. Nonobstructing calculus lower pole left kidney similar to 2017 CT imaging.
[2017-11-01] MEDS: Budesonide/Formoterol Fumarate (Symbicort) 80-4.5 Mcg Inhaler IH SCH ×2 (09:00→22:27)
[2017-11-01] MEDS: PANTOPRAZOLE 40MG TABLET PO SCH (09:36)
[2017-11-01] MEDS: MEMANTINE HCL 10 MG TABLET PO SCH ×2 (09:36→22:18)
[2017-11-01] MEDS: DOCOSAHEXANOIC AC/EPA 1000 MG PO SCH (09:36)
[2017-11-01] MEDS: LISINOPRIL 5 MG TAB PO SCH (09:36)
[2017-11-01] MEDS: MULTIVIT W/ MINERAL TAB PO SCH (09:36)
[2017-11-01] MEDS: DONEPEZIL HCL 5 MG TAB PO SCH ×2 (09:36→22:18)
[2017-11-01] MEDS: APIXABAN 5 MG TABLET PO SCH ×2 (09:36→22:18)
[2017-11-01] MEDS: METOPROLOL TAR 25 MG TAB PO SCH ×2 (09:37→22:17)
--- NOTE | 2017-11-01 12:02 | P.PN ---
Subjective Date of Service: 11/01/17 Primary Care Provider: [facility] Chief Complaint: failure to thrive, volume depletion, hypomagnesemia Subjective: Doing well Physical Examination - Vital Signs Temperature: 97.8 F Blood Pressure: 128/61 Pulse: 75 Respirations: 18 Pulse Ox (%): 90 - Physical Exam General: Alert, In no apparent distress, Cooperative HEENT: Atraumatic Neck: Supple, No Thyromegaly Respiratory: Clear to auscultation bilaterally, Normal air movement Cardiovascular: Normal pulses, Regular rate/rhythm Gastrointestinal: Normal bowel sounds, Soft and benign, Non-distended, No masses , No rebound, No guarding Musculoskeletal: No erythema, No tenderness, No warmth Integumentary: No erythema, No warmth, No cyanosis Neurological: Normal speech, Normal strength at 5/5 x4 extr, Normal tone, Normal affect - Studies Medications List Reviewed: Yes Assessment & Plan - Problems (Diagnosis) (1) Hyperlipidemia Current Visit: Yes Status: Chronic Plan: Will continue with medication Qualifiers: Hyperlipidemia type: unspecified Qualified Code(s): E78.5 - Hyperlipidemia , unspecified (2) GERD (gastroesophageal reflux disease) Current Visit: Yes Status: Chronic Plan: Will continue with medication. Qualifiers: Esophagitis presence: esophagitis presence not specified Qualified Code(s) : K21.9 - Gastro-esophageal reflux disease without esophagitis (3) Malnutrition Current Visit: Yes Status: Acute Plan: Patient with malnutrition. Will continue with dietary recommendation. Will continue with IV fluids. (4) Chronic renal disease Current Visit: Yes Status: Suspected Plan: Patient likely with underlying chronic renal disease. Will check renal ultrasound. Previous results from [place] shows normal renal function. This may be acute related to dehydration. Renal function slowly improving. Will consult nephrology to further assess. Qualifiers: Chronic kidney disease stage: stage 4 (severe) Qualified Code(s): N18.4 - Chronic kidney disease, stage 4 (severe) (5) Acute renal injury Onset Date: 10/31/17 Current Visit: Yes Status: Acute Plan: Likely from dehydration. Renal function slowly improving. Previous lab reviewed shows normal renal function. Will continue monitor closely. (6) Failure to thrive Onset Date: 10/31/17 Current Visit: Yes Status: Acute Plan: Continue with above plan of care. Patient doing well this time. Will have physical therapy assess. Qualifiers: Failure to thrive age range: in adult Qualified Code(s): R62.7 - Adult failure to thrive (7) Essential hypertension Onset Date: 10/31/17 Current Visit: Yes Status: Chronic Plan: Will continue with his home medication. (8) Chronic anticoagulation Current Visit: Yes Status: Chronic Plan: Will continue with anti coagulation therapy. Patient with history of DVT and PE. Patient also has filter in place. (9) Hyperkalemia Onset Date: 10/31/17 Current Visit: Yes Status: Chronic Plan: This has resolved. Will continue to monitor. (10) Hypomagnesemia Onset Date: 10/31/17 Current Visit: Yes Status: Acute Plan: Will monitor and replace appropriately. Replacement protocol in place. (11) Chronic obstructive pulmonary disease Onset Date: 10/31/17 Current Visit: Yes Status: Chronic Plan: Will continue with COPD treatment. Qualifiers: COPD type: unspecified COPD Qualified Code(s): J44.9 - Chronic obstructive pulmonary disease, unspecified (12) History of lung cancer Current Visit: No Status: Chronic Plan: Patient with history of lung cancer. Will continue with COPD treatment. (13) Hx pulmonary embolism Current Visit: No Status: Chronic Plan: Will continue with chronic anti coagulation therapy (14) AAA (abdominal aortic aneurysm) Current Visit: Yes Status: Chronic Plan: 10 x 5 x 8 cm infrarrenal aortic aneurysm history. This was addressed with the medical power of deputy prosecuting attorney. [facility] No intervention has been recommended due to his age. Medical power of deputy prosecuting attorney understands the risks Qualifiers: Presence of rupture: without rupture Qualified Code(s): I71.4 - Abdominal aortic aneurysm, without rupture Discharge Plan: Long-Term Plan to discharge in: 48 Hours Time Spent Managing Pts Care (In Minutes): 55
[2017-11-01 15:52] LABS: UR CREAT 54.9 mg/dL; Urine Protein/Creatinine Ratio 0.24 (<0.15)
[2017-11-01] MEDS ORDERED: NA CHLORIDE 0.9% 500 ML IV ONE (17:00)
[2017-11-01] MEDS: ATORVASTATIN 10 MG TAB PO SCH (22:17)
[2017-11-02] MEDS: NA CHLORIDE 0.9% 1,000 ML IV SCH ×3 (01:36→20:44)
--- NOTE | 2017-11-02 02:08 | CON ---
Date of Consultation: 11/01/2017 Additional Consulting Physician: Maciej Mendieta D.O. Reason For Consultation: Elevated BUN, creatinine, fluid management. 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 Also patient apparently taking Advil 2 tablet every day for the last 2 months at night. Primary workup showed elevated BUN and creatinine, for that reason, we have been consulted. The patient has no IV contrast. As I mentioned, patient taking Advil and the patient being on lisinopril at home. Reviewing the record, the patient had creatinine within normal limits. Last month with creatinine 0.85. Normal GFR. No IV contrast. No current antibiotic. Past Medical History: Includes: 1. COPD. 2. Lung CA status post chemo back in the . 3. Hypertension. 4. CVA without any residual, back in 2010. 5. Dementia. 6. Aortic aneurysm. 7. Diabetes. Home Medications: Include: 1. Breathing treatment. 2. Atorvastatin. 3. Coumadin. 4. Lisinopril 10. 5. Namenda. 6. Metoprolol 12.5. 7. Multivitamin. 8. Pantoprazole. Social History: Ex-smoker. Denied alcohol. Denied drug abuse. Review of Systems: Head and Neck: No red eye. No ear pain. GI: No nausea, has decreased intake. : No polyuria. No dysuria. No hematuria. ROLL TESTER: Not applicable. Respiratory: Has shortness of breath. Cardiovascular: No chest pain. Neuro: Has neuropathy. Musculoskeletal: No joint pain. Endocrine: No polydipsia. Skin: No rash. Physical Examination: General: When I saw the patient, the patient was sitting in the chair comfortable. Vital signs: Blood pressure 132/63, pulse of 66, afebrile. Chest: Clear to auscultation. Heart: S1, S2. Regular. Abdomen: Soft, nontender. Extremities: No edema. Neuro: Alert, oriented x3. No focal. Laboratory Data: WBC 2, H and H 10.7/31.2, platelet 169. Sodium 143, potassium 4.3, bicarb 27, BUN 38, creatinine 2.3, calcium 8.4, magnesium of 1.6. TSH of 3.8. Renal ultrasound was done showing 9.7 x 11. No hydronephrosis. No obstruction. Chest x-ray no congestion. Urinalysis; specific gravity of 1.015, protein creatinine 0.24. Assessment And Plan: 1. Acute kidney injury secondary to normal size kidney, proteinuric, nonnephrotic secondary to nonsteroidal intake, poor intake prerenal, poor perfusion, acute tubular necrosis. I agree with IV fluid. Looked to me the patient is still on the dry side. I am going to go ahead and bolus him again with 500. We will maintain him on normal saline and we will follow up. 2. Hypertension, currently blood pressure on the controlled side. I am going to hold GWEN inhibitor given the acute kidney injury. 3. Dehydration secondary to poor intake. Continue IV fluid. 4. Hyperkalemia secondary to renal failure. GWEN inhibitor. Agree with holding GWEN inhibitor. Continue hydration. Currently resolved. DEXTER Voice ID: [id number] Report ID: [id number] MTDD
[2017-11-02 05:14] LABS: Absolute Lymphocytes (CBC) 0.5 K/uL (0.7-4.9); Absolute Monocytes 0.5 K/uL (0.1-1.3); Absolute Neutrophil 1.1 K/uL (1.8-8.0); Basophils % 0.4 % (0-1.3); Eosinophils % 2.3 % (0-4.4); Hematocrit 30.6 % (39.6-49.0); Lymphocytes % 24.1 % (15.3-44.8); MCV 91.3 fL (80-100); MPV 9.1 fL (7.6-11.3); Monocytes % 23.1 % (3.3-12.3); RBC Red Blood Cell Count 3.35 M/uL (4.33-5.43)
[2017-11-02 05:25] LABS: Albumin 3.1 g/dL (3.2-5.5); Magnesium 1.6 mg/dL (1.8-2.5); Phosphorus 3.2 mg/dL (2.5-4.3); Potassium 4.6 mEq/L (3.6-5.0)
[2017-11-02] MEDS ORDERED: MAGNESIUM SULFATE 1 gm IVPB 1 GM/100 ML BAG IV ONE (06:27)
[2017-11-02] MEDS: MEMANTINE HCL 10 MG TABLET PO SCH ×2 (08:19→21:39)
[2017-11-02] MEDS: PANTOPRAZOLE 40MG TABLET PO SCH (08:20)
[2017-11-02] MEDS: DONEPEZIL HCL 5 MG TAB PO SCH ×2 (08:20→21:39)
[2017-11-02] MEDS: MULTIVIT W/ MINERAL TAB PO SCH (08:20)
[2017-11-02] MEDS: DOCOSAHEXANOIC AC/EPA 1000 MG PO SCH (08:20)
[2017-11-02] MEDS: METOPROLOL TAR 25 MG TAB PO SCH ×2 (08:20→21:38)
[2017-11-02] MEDS: APIXABAN 5 MG TABLET PO SCH ×2 (08:20→21:38)
[2017-11-02] MEDS: Budesonide/Formoterol Fumarate (Symbicort) 80-4.5 Mcg Inhaler IH SCH ×2 (08:25→21:38)
--- NOTE | 2017-11-02 08:49 | P.PN ---
Subjective Date of Service: 11/02/17 Primary Care Provider: [facility] Chief Complaint: failure to thrive, volume depletion, hypomagnesemia Subjective: Doing well Physical Examination - Vital Signs Temperature: 99.1 F Blood Pressure: 149/69 Pulse: 71 Respirations: 18 Pulse Ox (%): 91 - Physical Exam General: Alert, In no apparent distress, Cooperative HEENT: Atraumatic Neck: Supple Respiratory: Clear to auscultation bilaterally, Normal air movement Cardiovascular: Normal pulses, Regular rate/rhythm Gastrointestinal: Normal bowel sounds, Soft and benign, Non-distended, No tenderness, No masses, No rebound, No guarding Musculoskeletal: No erythema, No tenderness, No warmth Integumentary: No tenderness/swelling, No erythema, No warmth, No cyanosis Neurological: Normal speech, Normal strength at 5/5 x4 extr, Normal tone, Normal affect - Studies Medications List Reviewed: Yes Assessment & Plan - Problems (Diagnosis) (1) Hyperlipidemia Current Visit: Yes Status: Chronic Plan: Will continue with medication Qualifiers: Hyperlipidemia type: unspecified Qualified Code(s): E78.5 - Hyperlipidemia , unspecified (2) GERD (gastroesophageal reflux disease) Current Visit: Yes Status: Chronic Plan: Will continue with medication. Qualifiers: Esophagitis presence: esophagitis presence not specified Qualified Code(s) : K21.9 - Gastro-esophageal reflux disease without esophagitis (3) Malnutrition Current Visit: Yes Status: Acute Plan: Patient with malnutrition. Will continue with dietary recommendation. Will continue with IV fluids. (4) Chronic renal disease Current Visit: Yes Status: Suspected Plan: Overall this has improved. Renal ultrasound shows no medical renal disease. Acute on chronic renal disease likely related to dehydration, nonsteroidal anti- inflammatory use, and PASTOR-inhibitor. Patient off nonsteroidal anti- inflammatories and Pastor inhibitors. Renal function slowly improving. Continue with IV fluids. Will continue to monitor closely. Home once renal function near normal. Will discuss with nephrology. Qualifiers: Chronic kidney disease stage: stage 4 (severe) Qualified Code(s): N18.4 - Chronic kidney disease, stage 4 (severe) (5) Acute renal injury Onset Date: 10/31/17 Current Visit: Yes Status: Acute Plan: Secondary to above. Will continue with above plan of care. (6) Failure to thrive Onset Date: 10/31/17 Current Visit: Yes Status: Acute Plan: Continue with above plan of care. Patient doing well this time. Will continue with physical therapy. Qualifiers: Failure to thrive age range: in adult Qualified Code(s): R62.7 - Adult failure to thrive (7) Essential hypertension Onset Date: 10/31/17 Current Visit: Yes Status: Chronic Plan: Will continue with his home medication. Blood pressure stable at this time. (8) Chronic anticoagulation Current Visit: Yes Status: Chronic Plan: Will continue with anti coagulation therapy. Patient with history of DVT and PE. Patient also has filter in place. (9) Hyperkalemia Onset Date: 10/31/17 Current Visit: Yes Status: Chronic Plan: This has resolved. Will continue to monitor. (10) Hypomagnesemia Onset Date: 10/31/17 Current Visit: Yes Status: Acute Plan: Will monitor and replace appropriately. Replacement protocol in place. (11) Chronic obstructive pulmonary disease Onset Date: 10/31/17 Current Visit: Yes Status: Chronic Plan: Will continue with COPD treatment. Qualifiers: COPD type: unspecified COPD Qualified Code(s): J44.9 - Chronic obstructive pulmonary disease, unspecified (12) History of lung cancer Current Visit: No Status: Chronic Plan: Patient with history of lung cancer. Will continue with COPD treatment. (13) Hx pulmonary embolism Current Visit: No Status: Chronic Plan: Will continue with chronic anti coagulation therapy (14) AAA (abdominal aortic aneurysm) Current Visit: Yes Status: Chronic Plan: 10 x 5 x 8 cm infrarrenal aortic aneurysm history. This was addressed with the medical power of radiation physicist. [facility] No intervention has been recommended due to his age. Medical power of radiation physicist understands the risks Qualifiers: Presence of rupture: without rupture Qualified Code(s): I71.4 - Abdominal aortic aneurysm, without rupture Discharge Plan: Halfway Plan to discharge in: 24 Hours (to 48 hours) Time Spent Managing Pts Care (In Minutes): 55
--- NOTE | 2017-11-02 15:39 | PN ---
Date of Progress Note: 11/02/2017 Subjective: The patient doing a better. No nausea, no vomiting. The patient was started on IV hydr ation. The patient doing better. More awake. No weakness. Physical Examination: Vital Signs: Blood pressure 135/74, pulse of 60, afebrile. The patient had good urine output of 190 0, positive of 200. Chest: Clear to auscultation. Heart: S1, S2. Regular. Abdomen: Soft, nontender. Extremities: No edema. Laboratory Data: WBC 2.2, H and H 10.4/30.6, and platelets 167. Sodium 143, potassium 4.6, bicarb 2 4, BUN 30 creatinine 1.9 calcium 8.1, phosphorus 3.2, and magnesium 1.8. Assessment And Plan: 1.Acute kidney injury, normal-sized kidney, secondary to prerenal and nonsteroidal use, resolved. 2.Hypomagnesemia. We will supplement. 3.Hypertension. Keep holding blood pressure medication for the time being. 4.Hyperkalemia, resolved. DEXTER Voice ID: [id number] Report ID: [id number]
[2017-11-02] MEDS: ATORVASTATIN 10 MG TAB PO SCH (21:38)
[2017-11-03 05:39] VITALS: BP 149/72
[2017-11-03 05:55] LABS: Absolute Lymphocytes (CBC) 0.7 K/uL (0.7-4.9); Absolute Monocytes 0.5 K/uL (0.1-1.3); Absolute Neutrophil 1.7 K/uL (1.8-8.0); Basophils % 0.3 % (0-1.3); Hematocrit 33.5 % (39.6-49.0); Lymphocytes % 23.8 % (15.3-44.8); MCH 31.1 pg (27.0-35.0); MCV 91.3 fL (80-100); MPV 9.3 fL (7.6-11.3); Monocytes % 16.4 % (3.3-12.3); RBC Red Blood Cell Count 3.67 M/uL (4.33-5.43)
[2017-11-03 06:10] LABS: Albumin 3.6 g/dL (3.2-5.5); Magnesium 1.5 mg/dL (1.8-2.5); Phosphorus 3.1 mg/dL (2.5-4.3); Potassium 4.3 mEq/L (3.6-5.0)
[2017-11-03] MEDS: NA CHLORIDE 0.9% 1,000 ML IV SCH (06:34)
[2017-11-03] MEDS: Budesonide/Formoterol Fumarate (Symbicort) 80-4.5 Mcg Inhaler IH SCH (09:28)
[2017-11-03] MEDS: DOCOSAHEXANOIC AC/EPA 1000 MG PO SCH (09:28)
[2017-11-03] MEDS: MEMANTINE HCL 10 MG TABLET PO SCH (09:29)
[2017-11-03] MEDS: MULTIVIT W/ MINERAL TAB PO SCH (09:29)
[2017-11-03] MEDS: METOPROLOL TAR 25 MG TAB PO SCH (09:29)
[2017-11-03] MEDS: APIXABAN 5 MG TABLET PO SCH (09:29)
[2017-11-03] MEDS: DONEPEZIL HCL 5 MG TAB PO SCH (09:29)
[2017-11-03] MEDS: PANTOPRAZOLE 40MG TABLET PO SCH (09:30)
[2017-11-03] MEDS ORDERED: Magnesium Sulfate 2gm IVPB 2 G/50 ML BAG IV ONE (10:00)
--- NOTE | 2017-11-03 12:02 | P.DS ---
Admission Date: 10/30/17 Discharge Date: 11/03/17 Primary Care Provider: [facility] [place] Disposition: TRANSFER TO CUSTODIAL Discharge Condition: GOOD Reason for Admission: failure to thrive, volume depletion, hypomagnesemia Consultations: Nephrology-Dr. Feng Procedures: Renal ultrasound shows no medical renal disease. Non obstructing left renal calculi noted - Problems (1) Hyperlipidemia Current Visit: Yes Status: Chronic Qualifiers: Hyperlipidemia type: unspecified Qualified Code(s): E78.5 - Hyperlipidemia , unspecified (2) GERD (gastroesophageal reflux disease) Current Visit: Yes Status: Chronic Qualifiers: Esophagitis presence: esophagitis presence not specified Qualified Code(s) : K21.9 - Gastro-esophageal reflux disease without esophagitis (3) Malnutrition Current Visit: Yes Status: Acute (4) Acute renal injury Onset Date: 10/31/17 Current Visit: Yes Status: Acute (5) Failure to thrive Onset Date: 10/31/17 Current Visit: Yes Status: Acute Qualifiers: Failure to thrive age range: in adult Qualified Code(s): R62.7 - Adult failure to thrive (6) Essential hypertension Onset Date: 10/31/17 Current Visit: Yes Status: Chronic (7) Chronic anticoagulation Current Visit: Yes Status: Chronic (8) Hyperkalemia Onset Date: 10/31/17 Current Visit: Yes Status: Chronic (9) Hypomagnesemia Onset Date: 10/31/17 Current Visit: Yes Status: Acute (10) Chronic obstructive pulmonary disease Onset Date: 10/31/17 Current Visit: Yes Status: Chronic Qualifiers: COPD type: unspecified COPD Qualified Code(s): J44.9 - Chronic obstructive pulmonary disease, unspecified (11) History of lung cancer Current Visit: No Status: Chronic (12) Hx pulmonary embolism Current Visit: No Status: Chronic (13) AAA (abdominal aortic aneurysm) Current Visit: Yes Status: Chronic Qualifiers: Presence of rupture: without rupture Qualified Code(s): I71.4 - Abdominal aortic aneurysm, without rupture Brief History of Present Illness: 82-year-old male [facility], poor oral intake. Patient has multiple medical problems including hypertension, COPD, AAA, dementia. The patient was evaluated in the emergency room found to have multiple electrolyte abnormalities with acute renal injury. The patient was admitted for evaluation and treatment. Hospital Course: During his stay his renal function improved along with electrolytes replacement. Medications were adjusted. Nephrology was consulted to further assess. Renal ultrasound showed no medical renal disease. Left nonobstructing renal calculi was noted. At discharge his renal function significantly improved. Medications including metformin and lisinopril were discontinued. Nonsteroidal anti-inflammatories were also discontinued. At discharge patient will return to assisted living facility. Recommendations for the patient to follow up at [facility] within 1 week to follow up this hospitalization. As for his renal injury, the patient will need to follow up with Nephrology in 2 weeks to follow up this hospitalization. Recommendation is to recheck lab in 1-2 weeks to monitor his progress. Medications have been adjusted. Patient will no longer take lisinopril and metformin. No further use of nonsteroidal anti-inflammatories is recommended. Future medications will need to be renally dosed. Patient with history of hypertension. Patient will continue with metoprolol 12.5 mg 1 pill twice daily. Lisinopril has been discontinued due to acute renal injury. Recommendation is to maintain blood pressures less 150/80. Further adjustment can be done by his PCP. Patient with dementia. Patient will continue with Aricept and Namenda. Patient encouraged to increase oral intake. Patient with hyperlipidemia. Patient continue with Lipitor 40 mg 1 pill once daily. Patient with history of blood clots on chronic anti coagulation therapy. Patient will continue with Eliquis 5 mg 1 pill twice daily. Patient with large abdominal aortic aneurysm. This is to be followed by cardiology as an outpatient. Patient has history of COPD. He will continue with Symbicort twice daily and albuterol as needed. Patient with mild anemia. Patient will continue with multi vitamin daily. Vital Signs/Physical Exam: Temp Pulse Resp BP Pulse Ox 98.8 F 63 18 149/72 H 93 11/03/17 07:42 11/03/17 07:42 11/03/17 07:42 11/03/17 07:42 11/03/17 07:42 General: Alert, In no apparent distress, Cooperative, Demented HEENT: Atraumatic, Mucous membr. moist/pink Neck: Supple, No Thyromegaly Respiratory: Clear to auscultation bilaterally, Normal air movement Cardiovascular: Normal pulses, Regular rate/rhythm Gastrointestinal: Normal bowel sounds, Soft and benign, Non-distended, No tenderness, No masses, No rebound, No guarding Musculoskeletal: No erythema, No tenderness, No warmth Integumentary: No tenderness/swelling, No erythema, No warmth, No cyanosis Neurological: Normal speech, Normal strength at 5/5 x4 extr, Normal tone, Normal affect Lymphatics: No axilla or inguinal lymphadenopathy Laboratory Data at Discharge: WBC 2.9 K/uL (4.3-10.9) L D 11/03/17 05:19 Hgb 11.4 g/dL (13.6-17.9) L 11/03/17 05:19 Hct 33.5 % (39.6-49.0) L 11/03/17 05:19 Plt Count 200 K/uL (152-406) 11/03/17 05:19 PT 19.6 SECONDS (9.5-12.5) H 10/30/17 17:30 INR 1.65 10/30/17 17:30 APTT 33.6 SECONDS (24.3-36.9) 10/30/17 17:30 Sodium 143 mEq/L (135-145) 11/03/17 05:19 Potassium 4.3 mEq/L (3.6-5.0) 11/03/17 05:19 BUN 23 mg/dL (6-20) H 11/03/17 05:19 Creatinine 1.75 mg/dL (0.61-1.24) H 11/03/17 05:19 Glucose 138 mg/dL (65-120) H 11/03/17 05:19 Phosphorus 3.1 mg/dL (2.5-4.3) 11/03/17 05:19 Magnesium 1.5 mg/dL (1.8-2.5) L 11/03/17 05:19 Total Bilirubin 0.9 mg/dL (0.3-1.2) 10/30/17 17:30 AST 27 IU/L (10-42) 10/30/17 17:30 ALT 19 IU/L (10-60) 10/30/17 17:30 Alkaline Phosphatase 87 IU/L (42-121) 10/30/17 17:30 B-Natriuretic Peptide 93 pg/ml (<=100) 10/30/17 17:30 Amylase 37 U/L (28-100) 10/30/17 17:30 Lipase 27 U/L (22-51) 10/30/17 17:30 Home Medications: Albuterol Inhaler [Ventolin Inhaler*] 2 puff IH Q4H PRN 09/12/16 Atorvastatin Calcium [Lipitor*] 40 mg PO BEDTIME 09/12/16 Budesonide/Formoterol Fumarate [Symbicort 80-4.5 Mcg Inhaler] 2 puff IH BID 08/28 Donepezil HCl [Aricept] 10 mg PO BID 09/12/16 Memantine HCl [Namenda*] 5 mg PO BID 09/12/16 Metoprolol Tartrate [Lopressor*] 12.5 mg PO BID 09/12/16 Multivitamin [Daily Multivitamin] 1 each PO DAILY 09/12/16 Meigs-3 Fatty Acids [Fish Oil] 1,000 mg PO DAILY 09/12/16 Pantoprazole Sodium [Protonix] 40 mg PO DAILY 09/12/16 Acetaminophen [Pain Relief] 2 tab PO Q6HP PRN 10/31/17 Apixaban [Eliquis] 1 tab PO BID 10/31/17 Cetirizine HCl 1 tab PO DAILY PRN 10/31/17 Patient Discharge Instructions: 1. Patient will return to assisted living facility. Recommendations for the patient to follow up at [facility] within 1 week to follow up this hospitalization. 2. Patient presented with acute renal injury likely from dehydration and poor oral intake. At discharge renal function has significantly improved. Patient will need to follow up with Nephrology in 2 weeks to follow up this hospitalization. Recommendation is to recheck lab in 1-2 weeks to monitor his progress. Medications have been adjusted. Patient will no longer take lisinopril and metformin. No further use of nonsteroidal anti-inflammatories is recommended. Future medications will need to be renally dosed. 3. Patient with history of hypertension. Patient will continue with metoprolol 12.5 mg 1 pill twice daily. Lisinopril has been discontinued due to acute renal injury. Recommendation is to maintain blood pressures less 150/80. Further adjustment can be done by his PCP. 4. Patient with dementia. Patient will continue with Aricept and Namenda. Patient encouraged to increase oral intake. 5. Patient with hyperlipidemia. Patient continue with Lipitor 40 mg 1 pill once daily. 6. Patient with history of blood clots on chronic anti coagulation therapy. Patient will continue with Eliquis 5 mg 1 pill twice daily. 7. Patient with large abdominal aortic aneurysm. This is to be followed by cardiology as an outpatient. 8. Patient has history of COPD. He will continue with Symbicort twice daily and albuterol as needed. 9. Patient with mild anemia. Patient will continue with multi vitamin daily. Diet: AHA Activity: Fall precautions Time spent managing pt's care (in minutes): 55
[2017-11-03 13:55] VITALS: TEMP 98.2
--- NOTE | 2017-11-03 17:19 | PN ---
Date of Progress Note: 11/03/2017 Subjective: The patient is doing well. No nausea. No vomiting. No shortness of breath. Physical Examination: Vital Signs: Blood pressure 149/72, pulse of 63, afebrile. Had good urine output of 2 L. Chest: Clear to auscultation. Heart: S1, S2. Regular. Abdomen: Soft, nontender. Extremities: No edema. Laboratory Data: H and H 11.4/33.5. Sodium 143, potassium 4.3, bicarb 27, BUN 23, creatinine 1.7, c alcium 8.8, magnesium 1.5. Medications: Current medication the patient is on include: 1.Atorvastatin. 2.Metoprolol 12.5. 3.Namenda. 4.Tylenol. 5.Zofran. 6.Pantoprazole. Assessment And Plan: 1.Acute kidney injury secondary to prerenal, recovered back close to baseline. We will continue hyd ration orally. The patient cleared from the renal standpoint for discharge planning to follow up in the office in 2 weeks. 2.Hypomagnesemia, we will supplement. 3.Hypertension, control optimal. 4.Hyperkalemia, resolved. Case discussed with Dr. Mendieta, agreed on the plan. Discussed with the p haley, verbalized understanding. DEXTER Voice ID: [id number] Report ID: [id number]
== END 2017-11-03 14:17 | disposition home health service (06) | DRG 683 ==
LOC: ER 15:59 → OBSVTOIN 19:38 → ERHOLD 19:38 → 4TH 21:51
PROVIDERS: ADMIT Internal Medicine; ATTEND Family Medicine
DX: N17.9 Acute kidney failure, unspecified (principal); E46 Unspecified protein-calorie malnutrition; E83.42 Hypomagnesemia; I71.4 Abdominal aortic aneurysm, without rupture; J44.9 Chronic obstructive pulmonary disease, unspecified; E87.5 Hyperkalemia; R62.7 Adult failure to thrive; E86.0 Dehydration; E78.5 Hyperlipidemia, unspecified; K21.9 Gastro-esophageal reflux disease without esophagitis; I12.9 Hypertensive chronic kidney disease with stage 1 through stage 4 chronic kidney disease, or unspecified chronic kidney disease; Z86.711 Personal history of pulmonary embolism; Z79.01 Long term (current) use of anticoagulants
CPT/HCPCS: 36415; 71045; 76770; 80048; 80069; 80076; 81003; 82150; 82550; 82553; 82570; 82962; 83690; 83735; 83880; 84156; 84439; 84443; 84484; 85025; 85610; 85730; 93005; 96365; 96366; 97163; 99285; J3475; J7030

== ENCOUNTER 2017-11-05 19:33 | Emergency (ER) | payer OTHER ==
--- NOTE | 2017-11-05 21:10 | RAD REPORT ---
EXAM DESCRIPTION: RAD - Chest Single View - 11/05/2017 8:49 pm CLINICAL HISTORY: Fever, possible pneumonia COMPARISON: October 30September 03 TECHNIQUE: AP portable chest image was obtained 2045 hours . FINDINGS: Lung volumes are low. Interstitial markings are prominent. Right base patchy opacification is similar to prior imaging. Heart and vasculature are normal. No measurable pleural effusion and no pneumothorax. No gross bony abnormality seen. No acute aortic findings suspected. Left apical pleura l thickening present and stable. IMPRESSION: Chronic interstitial lung disease is present. Findings are similar to October 30.
[2017-11-05 21:20] LABS: Absolute Lymphocytes (CBC) 0.8 K/uL (0.7-4.9); Absolute Monocytes 0.5 K/uL (0.1-1.3); Basophils % 0.3 % (0-1.3); Eosinophils % 1.7 % (0-4.4); Hematocrit 31.9 % (39.6-49.0); Lymphocytes % 18.6 % (15.3-44.8); MCH 31.7 pg (27.0-35.0); MCV 90.2 fL (80-100); MPV 9.3 fL (7.6-11.3); Monocytes % 11.4 % (3.3-12.3); RBC Red Blood Cell Count 3.53 M/uL (4.33-5.43)
[2017-11-05 21:45] LABS: Potassium 4.7 mEq/L (3.6-5.0)
[2017-11-05 22:10] LABS: Urine Blood TRACE (NEG); Urine Glucose NEGATIVE (NEG); Urine Protein NEGATIVE (NEG)
--- NOTE | 2017-11-05 22:37 | ER ---
Nurse's Notes [facility] Name: Viral Kim Age: 82 yrs Sex: Male : 1935 Arrival Date: 11/05/2017 Time: 19:35 Bed 28 Private MD: Diagnosis: Fever, unspecified;Low back pain Presentation: 11/05 19:45 Presenting complaint: Patient states: lower back/lower abd pain started today with low sr5 grade fever (Tmax 100.8), given Tylenol at 6pm. Recently discharged from this facility for reported renal failure per family. Pt alert/appropriate, arrived via WC, equal unlabored resp, skin warm/dry/nc. 19:45 Acuity: BONG 3 sr5 21:13 Transition of care: patient was not received from another setting of care. Onset of kb1 symptoms was November 05, 2017. Care prior to arrival: None. 21:13 Method Of Arrival: Wheelchair kb1 Historical: - Allergies: 20:18 No Known Allergies; kb1 - Home Meds: 20:18 acetaminophen 325 mg Oral tab 2 tabs every 6 hours for temp or pain [Active]; kb1 atorvastatin 40 mg Oral tab [Active]; donepezil 10 mg Oral tab 1 tab twice a day [Active]; Eliquis 5 mg Oral tab 1 tab 2 times per day [Active]; Fish Oil 1,000 mg Oral cap [Active]; memantine 10 mg Oral tab 0.5 tab 2 times per day [Active]; metoprolol tartrate 25 mg Oral tab 0.5 tab 2 times per day [Active]; Multiple Vitamins Oral tab 1 tab daily [Active]; pantoprazole 40 mg Oral TbEC 1 tab once daily [Active]; Symbicort inhalation [Active]; ProAir HFA 90 mcg/actuation inhalation HFAA 1 puff every 4 hours for Breathing [Active]; cetirizine 10 mg oral tab 1 tab once daily [Active]; - PMHx: 20:18 AAA; COPD; Depression; CVA; Diabetes - NIDDM; DVT; Left Femur; Lung CA; kb1 - PSHx: 20:18 Hip Replacement (Left); Lung (Portions removed from left and right); Leg (Left Femur); kb1 IVC; - Immunization history:: Pneumococcal vaccine is up to date, Flu vaccine is up to date. - Social history:: Smoking status: Patient/guardian denies using tobacco, the patient reports quitting approximately 27 years ago. Screenin:19 Abuse screen: Denies threats or abuse. Nutritional screening: No deficits noted. kb1 Tuberculosis screening: No symptoms or risk factors identified. Fall Risk Gait- Impaired (20 pts.). Assessment: 20:03 Reassessment: Friend reports that Pt had complained of a headache earlier this evening, kb1 with back and abdominal pain. Pt denies pain at this time. On transfer to bed Pt held left rib are and complained of pain with movement. Denies pain with palpitation to that area. General: Appears in no apparent distress. Behavior is calm, cooperative. Pain: Denies pain. Neuro: Level of Consciousness is awake, alert, obeys commands, Oriented to person, place, time, situation. Cardiovascular: Patient's skin is warm and dry. Respiratory: Airway is patent Respiratory effort is even, unlabored, Respiratory pattern is regular, symmetrical. GI: No signs and/or symptoms were reported involving the gastrointestinal system. Abdomen is round non-distended, Bowel sounds present X 4 quads. : No signs and/or symptoms were reported regarding the genitourinary system. Denies burning with urination, inability to void, pain urinary frequency. Derm:. 21:45 Reassessment: Patient appears in no apparent distress at this time. Patient and/or kb1 family updated on plan of care and expected duration. Pain level reassessed. Patient is alert, oriented x 3, equal unlabored respirations, skin warm/dry/pink. Vital Signs: 19:45 BP 152 / 67; Pulse 59; Resp 16; Temp 98.5(O); Pulse Ox 94% on R/A; Weight 76.66 kg (R); sr5 Height 5 ft. 11 in. (180.34 cm) (R); Pain 0/10; 19:57 BP 160 / 63; Pulse 60; Resp 16; Temp 98.3(T); Pulse Ox 98% on R/A; mt 20:46 BP 154 / 62; Pulse 63; Resp 16; Pulse Ox 97% on R/A; mt 22:25 BP 114 / 70; Pulse 79; Resp 16; Pulse Ox 98% on R/A; mt 23:00 BP 154 / 69; Pulse 66; Resp 20; Pulse Ox 95% on R/A; kb1 19:45 Body Mass Index 23.57 (76.66 kg, 180.34 cm) sr5 ED Course: 19:35 Patient arrived in ED. ds1 19:45 Arm band placed on right wrist. sr5 19:46 Triage completed. sr5 19:48 Liseth Sultana, RAJI is Primary Nurse. kb1 19:54 Guevara Mccormick MD is Attending Physician. kdr 20:19 Patient has correct armband on for positive identification. Placed in gown. Bed in low kb1 position. Call light in reach. Side rails up X 1. lunchroom monitor on. Pulse ox on. NIBP on. 20:48 X-ray completed. Portable x-ray completed in exam room. Patient tolerated procedure kc2 well. 20:49 CXR XRAY In Process Unspecified. EDMS 21:11 Straight cath inserted, using sterile technique, 16 Fr. Specimen obtained. Inserted kb1 saline lock: 20 gauge in left antecubital area, using aseptic technique. Blood collected. 23:00 No provider procedures requiring assistance completed. IV discontinued, intact, kb1 bleeding controlled, No redness/swelling at site. Pressure dressing applied. Administered Medications: No medications were administered Outcome: 22:36 Discharge ordered by . kdr 23:01 Discharged to home ambulatory, via wheelchair, with friend. kb1 23:01 Condition: stable 23:01 Discharge instructions given to patient, Instructed on discharge instructions, follow up and referral plans. Demonstrated understanding of instructions, follow-up care. 23:02 Patient left the ED. kb1 Signatures: Dispatcher [employer] EDUT Guevara Mccormick MD MD [facility] Chayo Scanlon ds1 Tereza Long kc2 Hector Cohen, RN RN sr5 Aline Bills mt, Kristina, RAJI RN kb1 Corrections: (The following items were deleted from the chart) 19:58 19:57 Temp 98.3F Tympanic; [facility]
--- NOTE | 2017-11-05 22:37 | EDPHYS ---
Physician Documentation [facility] Name: Viral Kim Age: 82 yrs Sex: Male : 1935 Arrival Date: 11/05/2017 Time: 19:35 Bed 28 Private MD: ED Physician Guevara Mccormick HPI: 11/05 23:39 This 82 yrs old Male presents to ER via Wheelchair with complaints of Fever, kdr Back Pain. 23:39 The patient reports fever, that was measured at 100.2 degrees Fahrenheit. Onset: The kdr symptoms/episode began/occurred suddenly, today. Modifying factors: Recent medications: acetaminophen. Associated signs and symptoms: Pertinent positives: backache, back pain, Pertinent negatives: abdominal pain, altered mental status, arthralgias, chest pain. Severity of symptoms: At their worst the symptoms were mild in the emergency department the symptoms have improved moderately. The patient has not experienced similar symptoms in the past. The patient was recently discharge from this facility for unrelated kidney issues. Historical: - Allergies: 20:18 No Known Allergies; kb1 - Home Meds: 20:18 acetaminophen 325 mg Oral tab 2 tabs every 6 hours for temp or pain [Active]; kb1 atorvastatin 40 mg Oral tab [Active]; donepezil 10 mg Oral tab 1 tab twice a day [Active]; Eliquis 5 mg Oral tab 1 tab 2 times per day [Active]; Fish Oil 1,000 mg Oral cap [Active]; memantine 10 mg Oral tab 0.5 tab 2 times per day [Active]; metoprolol tartrate 25 mg Oral tab 0.5 tab 2 times per day [Active]; Multiple Vitamins Oral tab 1 tab daily [Active]; pantoprazole 40 mg Oral TbEC 1 tab once daily [Active]; Symbicort inhalation [Active]; ProAir HFA 90 mcg/actuation inhalation HFAA 1 puff every 4 hours for Breathing [Active]; cetirizine 10 mg oral tab 1 tab once daily [Active]; - PMHx: 20:18 AAA; COPD; Depression; CVA; Diabetes - NIDDM; DVT; Left Femur; Lung CA; kb1 - PSHx: 20:18 Hip Replacement (Left); Lung (Portions removed from left and right); Leg (Left Femur); kb1 IVC; - Immunization history:: Pneumococcal vaccine is up to date, Flu vaccine is up to date. - Social history:: Smoking status: Patient/guardian denies using tobacco, the patient reports quitting approximately 27 years ago. ROS: 23:39 Constitutional: Negative for chills, and weight loss - he has had fever Eyes: Negative kdr for injury, pain, redness, and discharge, ENT: Negative for injury, pain, and discharge, Neck: Negative for injury, pain, and swelling, Cardiovascular: Negative for chest pain, palpitations, and edema, Respiratory: Negative for shortness of breath, cough, wheezing, and pleuritic chest pain, Abdomen/GI: Negative for abdominal pain, nausea, vomiting, diarrhea, and constipation, : Negative for injury, bleeding, discharge, and swelling, MS/Extremity: Negative for injury and deformity, Skin: Negative for injury, rash, and discoloration, Neuro: Negative for headache, weakness, numbness, tingling, and seizure activity. Psych: Negative for depression, anxiety, suicide ideation, homicidal ideation, and hallucinations, Allergy/Immunology: Negative for hives, rash, and allergies, Endocrine: Negative for neck swelling, polydipsia, polyuria, polyphagia, and marked weight changes, Hematologic/Lymphatic: Negative for swollen nodes, abnormal bleeding, and unusual bruising. 23:39 Back: Positive for pain at rest, of the lumbar area. Exam: 23:39 Constitutional: This is a well developed, well nourished patient who is awake, alert, kdr and in no acute distress. Head/Face: Normocephalic, atraumatic. Eyes: Pupils equal round and reactive to light, extra-ocular motions intact. Lids and lashes normal. Conjunctiva and sclera are non-icteric and not injected. Cornea within normal limits. Periorbital areas with no swelling, redness, or edema. Neck: Trachea midline, no thyromegaly or masses palpated, and no cervical lymphadenopathy. Supple, full range of motion without nuchal rigidity, or vertebral point tenderness. No Meningismus. Chest/axilla: Normal chest wall appearance and motion. Nontender with no deformity. No lesions are appreciated. Cardiovascular: Regular rate and rhythm with a normal S1 and S2. No gallops, murmurs, or rubs. Normal PMI, no JVD. No pulse deficits. Respiratory: Lungs have equal breath sounds bilaterally, clear to auscultation and percussion. No rales, rhonchi or wheezes noted. No increased work of breathing, no retractions or nasal flaring. Abdomen/GI: Soft, non-tender, with normal bowel sounds. No distension or tympany. No guarding or rebound. No evidence of tenderness throughout. Skin: Warm, dry with normal turgor. Normal color with no rashes, no lesions, and no evidence of cellulitis. MS/ Extremity: Pulses equal, no cyanosis. Neurovascular intact. Full, normal range of motion. Neuro: Awake and alert, GCS 15, oriented to person, place, time, and situation. Cranial nerves II-XII grossly intact. Motor strength 5/5 in all extremities. Sensory grossly intact. Cerebellar exam normal. Normal gait. Psych: Awake, alert, with orientation to person, place and time. Behavior, mood, and affect are within normal limits. 23:39 Back: pain, that is mild, of the L3. Vital Signs: 19:45 BP 152 / 67; Pulse 59; Resp 16; Temp 98.5(O); Pulse Ox 94% on R/A; Weight 76.66 kg (R); sr5 Height 5 ft. 11 in. (180.34 cm) (R); Pain 0/10; 19:57 BP 160 / 63; Pulse 60; Resp 16; Temp 98.3(T); Pulse Ox 98% on R/A; mt 20:46 BP 154 / 62; Pulse 63; Resp 16; Pulse Ox 97% on R/A; mt 22:25 BP 114 / 70; Pulse 79; Resp 16; Pulse Ox 98% on R/A; mt 23:00 BP 154 / 69; Pulse 66; Resp 20; Pulse Ox 95% on R/A; kb1 19:45 Body Mass Index 23.57 (76.66 kg, 180.34 cm) sr5 MDM: 19:54 Patient medically screened. kdr 23:39 Data reviewed: vital signs, nurses notes, lab test result(s), radiologic studies. kdr Counseling: I had a detailed discussion with the patient and/or guardian regarding: the historical points, exam findings, and any diagnostic results supporting the discharge/admit diagnosis, lab results, radiology results, the need for outpatient follow up. 11/05 20:30 Order name: Blood Culture Adult (2) kdr 11/05 20:30 Order name: Urine Culture kdr 11/05 20:30 Order name: CBC with Diff; Complete Time: 21:34 kdr 11/05 20:30 Order name: Chem 7; Complete Time: 22:26 kdr 11/05 20:30 Order name: CXR XRAY; Complete Time: 21:34 kdr 11/05 22:05 Order name: Urine Dipstick--Ancillary (enter results); Complete Time: 22: rg2 11/05 20:30 Order name: Urine Dipstick-Ancillary (obtain specimen); Complete Time: 21:12 kdr Administered Medications: No medications were administered Disposition: 11/05/17 22:36 Discharged to Home. Impression: Fever, unspecified, Low back pain. - Condition is Stable. - Discharge Instructions: Fever, Adult, Back Pain, Adult, [id number]. - Thank You Letter form. - Follow up: Private Physician; When: 2 - 3 days; Reason: If symptoms return, Further diagnostic work-up, Recheck today's complaints, Continuance of care, Re-evaluation by your physician. - Problem is new. - Symptoms have improved. Signatures: Dispatcher [employer] EDMS Guevara Mccormick MD MD kdr Liseth Sultana RN RN kb1
[2017-11-05 23:08] VITALS: TEMP 98.3
[2017-11-05 23:15] VITALS: BP 154/69; O2SAT 95
== END 2017-11-05 23:02 | disposition home or self-care (01) ==
LOC: ER 19:33
DX: M54.5 Low back pain; Z86.718 Personal history of other venous thrombosis and embolism; Z79.02 Long term (current) use of antithrombotics/antiplatelets; J44.9 Chronic obstructive pulmonary disease, unspecified; Z90.2 Acquired absence of lung [part of]; F32.9 Major depressive disorder, single episode, unspecified; E11.9 Type 2 diabetes mellitus without complications; Z85.118 Personal history of other malignant neoplasm of bronchus and lung; Z86.73 Personal history of transient ischemic attack (TIA), and cerebral infarction without residual deficits
CPT/HCPCS: 36415; 51702; 71045; 80048; 81003; 85025; 87040; 87086; 87088; 99284

== ENCOUNTER 2017-12-20 09:55 | Emergency (ER) | payer OTHER ==
--- NOTE | 2017-12-20 10:48 | RAD REPORT ---
EXAM DESCRIPTION: CT - Head Brain Wo Cont - 12/20/2017 10:34 am CLINICAL HISTORY: Fall, head injury. COMPARISON: None. TECHNIQUE: All CT scans are performed using dose optimization technique as appropriate and may inclu de automated exposure control or mA/KV adjustment according to patient size. FINDINGS: No intracranial hemorrhage, hydrocephalus or extra-axial fluid collection.Mild generalized brain atrophy is present with moderate periventricular and deep white matter chronic microvascular i schemic changes.No areas of brain edema or evidence of midline shift. The paranasal sinuses and mastoids are clear. The calvarium is intact. Right vertebral artery is calc ified. IMPRESSION: No acute intracranial abnormality.
--- NOTE | 2017-12-20 10:57 | EDPHYS ---
Physician Documentation [facility] Name: Viral Kim Age: 82 yrs Sex: Male : 1935 Arrival Date: 12/20/2017 Time: 09:58 Bed 15 Private MD: ED Physician Bony Ramos HPI: 12/20 10:24 This 82 yrs old Male presents to ER via EMS with complaints of Fall Injury. kb 10:24 Details of fall: The patient fell from an upright position, transferring to bed . kb Onset: The symptoms/episode began/occurred just prior to arrival. Associated injuries: The patient sustained no obvious injury. Severity of symptoms: At their worst the symptoms were very mild, in the emergency department the symptoms are unchanged. The patient has not experienced similar symptoms in the past. The patient has not recently seen a physician. Pt states he was transferring from standing to the bed and forgot to set the brake on his walker so it moved and he fell with it. States he hit his head on furniture on the way down, but "it didn't hurt." Only complaint is low back pain, but states that he always has that pain. Moves all extremities. Denies LOC. Historical: - Allergies: 10:12 No Known Allergies; ph - Home Meds: 10:12 atorvastatin 40 mg Oral tab [Active]; cetirizine 10 mg Oral tab 1 tab once daily ph [Active]; Eliquis 5 mg Oral tab 1 tab 2 times per day [Active]; Fish Oil 1,000 mg Oral cap [Active]; memantine 10 mg Oral tab 0.5 tab 2 times per day [Active]; metoprolol tartrate 25 mg Oral tab 0.5 tab 2 times per day [Active]; Multiple Vitamins Oral tab 1 tab daily [Active]; pantoprazole 40 mg Oral TbEC 1 tab once daily [Active]; Symbicort inhalation [Active]; acetaminophen 500 mg Oral tab 2 tabs every 6 hours for Fever, Pain [Active]; ProAir HFA 90 mcg/actuation inhalation HFAA 1 puff every 4 hours for Breathing [Active]; metformin 500 mg Oral tab 1 tab 2 times per day [Active]; ferrous gluconate 325 mg (37 mg iron) Oral tab twice a day [Active]; donepezil 10 mg Oral tab 1 tab twice a day [Active]; cyclobenzaprine 10 mg Oral tab 1 tab nightly [Active]; docusate sodium 100 mg Oral tab 1 tab once daily [Active]; - PMHx: 10:12 AAA; COPD; CVA; Depression; Diabetes - NIDDM; DVT; Left Femur; Lung CA; ph - PSHx: 10:12 Hip Replacement (Left); Lung (Portions removed from left and right); Leg (Left Femur); ph IVC; - Immunization history: Last tetanus immunization: unknown. - Social history:: Smoking status: Patient/guardian denies using tobacco. ROS: 10:24 Constitutional: Negative for fever, chills, and weight loss, Eyes: Negative for injury, kb pain, redness, and discharge, ENT: Negative for injury, pain, and discharge, Neck: Negative for injury, pain, and swelling, Cardiovascular: Negative for chest pain, palpitations, and edema, Respiratory: Negative for shortness of breath, cough, wheezing, and pleuritic chest pain, Abdomen/GI: Negative for abdominal pain, nausea, vomiting, diarrhea, and constipation, MS/Extremity: Negative for injury and deformity, Skin: Negative for injury, rash, and discoloration, Neuro: Negative for headache, weakness, numbness, tingling, and seizure. Exam: 10:24 Constitutional: This is a well developed, well nourished patient who is awake, alert, kb and in no acute distress. Head/Face: Normocephalic, atraumatic. Eyes: Pupils equal round and reactive to light, extra-ocular motions intact. Lids and lashes normal. Conjunctiva and sclera are non-icteric and not injected. Cornea within normal limits. Periorbital areas with no swelling, redness, or edema. ENT: Nares patent. No nasal discharge, no septal abnormalities noted. Tympanic membranes are normal and external auditory canals are clear. Oropharynx with no redness, swelling, or masses, exudates, or evidence of obstruction, uvula midline. Mucous membranes moist. Neck: Trachea midline, no thyromegaly or masses palpated, and no cervical lymphadenopathy. Supple, full range of motion without nuchal rigidity, or vertebral point tenderness. No Meningismus. Chest/axilla: Normal chest wall appearance and motion. Nontender with no deformity. No lesions are appreciated. Cardiovascular: Regular rate and rhythm with a normal S1 and S2. No gallops, murmurs, or rubs. Normal PMI, no JVD. No pulse deficits. Respiratory: Lungs have equal breath sounds bilaterally, clear to auscultation and percussion. No rales, rhonchi or wheezes noted. No increased work of breathing, no retractions or nasal flaring. Abdomen/GI: Soft, non-tender, with normal bowel sounds. No distension or tympany. No guarding or rebound. No evidence of tenderness throughout. Back: No spinal tenderness. No costovertebral tenderness. Full range of motion. Skin: Warm, dry with normal turgor. Normal color with no rashes, no lesions, and no evidence of cellulitis. MS/ Extremity: Pulses equal, no cyanosis. Neurovascular intact. Full, normal range of motion. Neuro: Awake and alert, GCS 15, oriented to person, place, time, and situation. Cranial nerves II-XII grossly intact. Motor strength 5/5 in all extremities. Sensory grossly intact. Cerebellar exam normal. Normal gait. Vital Signs: 10:01 BP 116 / 78; Pulse 91; Resp 18; Temp 97.7; Pulse Ox 94% on R/A; Weight 79.38 kg; Pain ph 3/10; 11:14 BP 116 / 68; Pulse 84; Resp 18; Pulse Ox 94% on R/A; ph Gianfranco Coma Score: 10:01 Eye Response: spontaneous(4). Verbal Response: oriented(5). Motor Response: obeys ph commands(6). Total: 15. 11:14 Eye Response: spontaneous(4). Verbal Response: oriented(5). Motor Response: obeys ph commands(6). Total: 15. Trauma Score (Adult): 10:01 Eye Response: spontaneous(1); Verbal Response: oriented(1); Motor Response: obeys ph commands(2); Systolic BP: > 89 mm Hg(4); Respiratory Rate: 10 to 29 per min(4); Gianfranco Score: 15; Trauma Score: 12 11:14 Eye Response: spontaneous(1); Verbal Response: oriented(1); Motor Response: obeys ph commands(2); Systolic BP: > 89 mm Hg(4); Respiratory Rate: 10 to 29 per min(4); [place] Score: 15; Trauma Score: 12 MDM: 10:03 Patient medically screened. kb 10:24 Data reviewed: vital signs, nurses notes. Data interpreted: Pulse oximetry: on room air kb is 94 %. Interpretation: acceptable. Counseling: I had a detailed discussion with the patient and/or guardian regarding: the historical points, exam findings, and any diagnostic results supporting the discharge/admit diagnosis, radiology results, the need for outpatient follow up, a family practitioner, to return to the emergency department if symptoms worsen or persist or if there are any questions or concerns that arise at home. 12/20 10:07 Order name: CT Head Brain wo Cont; Complete Time: 10:56 kb Administered Medications: No medications were administered Point of Care Testing: Blood Glucose: 11:14 Blood Glucose: 124 mg/dL; ph Ranges: Critical Glucose Levels:Adult <50 mg/dl or >400 mg/dl <40 mg/dl or >180 mg/dl Disposition: 13:38 Co-signature as Attending Physician, Bony Ramos MD I agree with the assessment and ashley plan of care. Disposition: 12/20/17 10:56 Discharged to Home. Impression: Superficial injury of head, Fall on same level from slipping, tripping and stumbling. - Condition is Stable. - Discharge Instructions: Fall Prevention and Home Safety, [id number], Head Injury, Adult, [id number]. - Medication Reconciliation Form, Thank You Letter, Antibiotic Education, Prescription Opioid Use form. - Follow up: Emergency Department; When: As needed; Reason: Worsening of condition. Follow up: Private Physician; When: 2 - 3 days; Reason: Recheck today's complaints, Continuance of care, Re-evaluation by your physician. Signatures: Dispatcher [employer] Rosetta Jimenez, ULTIMATE HOOPS TRAINER-C ULTIMATE HOOPS TRAINER-Bony Cuenca MD MD cha Hall, Patricia, RN RN ph Corrections: (The following items were deleted from the chart) 11:49 10:56 12/20/2017 10:56 Discharged to Home. Impression: Superficial injury of head; Fall ph on same level from slipping, tripping and stumbling. Condition is Stable. Forms are Medication Reconciliation Form, Thank You Letter, Antibiotic Education, Prescription Opioid Use. Follow up: Emergency Department; When: As needed; Reason: Worsening of condition. Follow up: Private Physician; When: 2 - 3 days; Reason: Recheck today's complaints, Continuance of care, Re-evaluation by your physician. kb
--- NOTE | 2017-12-20 10:57 | ER ---
Nurse's Notes [facility] Name: Viral Kim Age: 82 yrs Sex: Male : 1935 Arrival Date: 12/20/2017 Time: 09:58 Bed 15 Private MD: Diagnosis: Superficial injury of head;Fall on same level from slipping, tripping and stumbling Presentation: 12/20 09:58 Presenting complaint: EMS states: Pt from [facility], was standing and attempting to grab ph walker and fell, hit back of head on bottom of TV stand, denies LOC, rates pain 3/10, no injuries or abrasions noted to area. Care prior to arrival: None. Mechanism of Injury: Fall from standing position. Trauma event details: Injury occurred in the [facility], Injury occurred: in an institution. Injury occurred: December 20, 2017. 09:58 Acuity: BONG 3 ph 09:58 Method Of Arrival: EMS: [facility] 11:19 Transition of care: patient was not received from another setting of care. Onset of ph symptoms was December 20, 2017. Initial Sepsis Screen: Does the patient meet any 2 criteria? No. Patient's initial sepsis screen is negative. Does the patient have a suspected source of infection? No. Patient's initial sepsis screen is negative. Trauma Activation: Alert Physician: ED Physician; Name: ; Notified At: ; Arrived At: Physician: General Surgeon; Name: ; Notified At: ; Arrived At: Physician: Radiology; Name: ; Notified At: ; Arrived At: Physician: Respiratory; Name: ; Notified At: ; Arrived At: Physician: Lab; Name: ; Notified At: ; Arrived At: Historical: - Allergies: 10:12 No Known Allergies; ph - Home Meds: 10:12 atorvastatin 40 mg Oral tab [Active]; cetirizine 10 mg Oral tab 1 tab once daily ph [Active]; Eliquis 5 mg Oral tab 1 tab 2 times per day [Active]; Fish Oil 1,000 mg Oral cap [Active]; memantine 10 mg Oral tab 0.5 tab 2 times per day [Active]; metoprolol tartrate 25 mg Oral tab 0.5 tab 2 times per day [Active]; Multiple Vitamins Oral tab 1 tab daily [Active]; pantoprazole 40 mg Oral TbEC 1 tab once daily [Active]; Symbicort inhalation [Active]; acetaminophen 500 mg Oral tab 2 tabs every 6 hours for Fever, Pain [Active]; ProAir HFA 90 mcg/actuation inhalation HFAA 1 puff every 4 hours for Breathing [Active]; metformin 500 mg Oral tab 1 tab 2 times per day [Active]; ferrous gluconate 325 mg (37 mg iron) Oral tab twice a day [Active]; donepezil 10 mg Oral tab 1 tab twice a day [Active]; cyclobenzaprine 10 mg Oral tab 1 tab nightly [Active]; docusate sodium 100 mg Oral tab 1 tab once daily [Active]; - PMHx: 10:12 AAA; COPD; CVA; Depression; Diabetes - NIDDM; DVT; Left Femur; Lung CA; ph - PSHx: 10:12 Hip Replacement (Left); Lung (Portions removed from left and right); Leg (Left Femur); ph IVC; - Immunization history: Last tetanus immunization: unknown. - Social history:: Smoking status: Patient/guardian denies using tobacco. Screenin:18 Abuse screen: Denies threats or abuse. Denies injuries from another. Tuberculosis ph screening: No symptoms or risk factors identified. 11:30 Nutritional screening: No deficits noted. Fall Risk Fall in past 12 months (25 points). ph No secondary diagnosis (0 pts). No IV (0 pts). Ambulatory Aid- Crutches/Cane/Walker (15 pts). Gait- Normal/Bed Rest/Wheelchair (0 pts) Mental Status- Oriented to own ability (0 pts). Total Cash Fall Scale indicates High Risk Score (45 or more points). Fall prevention measures have been instituted. Side Rails Up X 2 Placed Close to Nursing Station Family Present and informed to notify staff if the need to leave the bedside As available patient and family educated on Fall Prevention Program and Strategies. Primary Survey: 10:30 A: Airway:. Breathing/Chest: Respiratory pattern: regular, Respiratory effort: ph spontaneous, unlabored, Breath sounds: clear, bilaterally. 11:16 Circulation: Skin color: pink, Skin temperature: warm, dry. Disability Alert. ph 11:17 Reassessment Breathing/Chest Respiratory pattern Regular Respiratory effort Spontaneous ph Unlabored Circulation Color [place] Temperature Warm Dry Disability Alert. Assessment: 10:15 General: Appears in no apparent distress. comfortable, slender, well groomed, Behavior ph is calm, cooperative, appropriate for age. Pain: Complains of pain in occipital area Pain currently is 3 out of 10 on a pain scale. Neuro: Level of Consciousness is awake, alert, obeys commands, Oriented to person, place, time, situation, Pupils are PERRLA, Denies blurred vision dizziness. Cardiovascular: Capillary refill < 3 seconds Patient's skin is warm and dry. Respiratory: Airway is patent Respiratory effort is even, unlabored. Derm: Skin is intact, Skin is pink, warm \T\ dry. Musculoskeletal: Circulation, motion, and sensation intact. Range of motion: intact in all extremities. 11:29 Reassessment: Patient appears in no apparent distress at this time. Patient and/or ph family updated on plan of care and expected duration. Pain level reassessed. Patient is alert, oriented x 3, equal unlabored respirations, skin warm/dry/pink. Family at bedside, awaiting discharge. 11:48 Reassessment: Patient appears in no apparent distress at this time. Patient is alert, ph oriented x 3, equal unlabored respirations, skin warm/dry/pink. Report called to Christin at [facility], pt discharged w/ family. Vital Signs: 10:01 BP 116 / 78; Pulse 91; Resp 18; Temp 97.7; Pulse Ox 94% on R/A; Weight 79.38 kg; Pain ph 3/10; 11:14 BP 116 / 68; Pulse 84; Resp 18; Pulse Ox 94% on R/A; ph [place]stone Coma Score: 10:01 Eye Response: spontaneous(4). Verbal Response: oriented(5). Motor Response: obeys ph commands(6). Total: 15. 11:14 Eye Response: spontaneous(4). Verbal Response: oriented(5). Motor Response: obeys ph commands(6). Total: 15. Trauma Score (Adult): 10:01 Eye Response: spontaneous(1); Verbal Response: oriented(1); Motor Response: obeys ph commands(2); Systolic BP: > 89 mm Hg(4); Respiratory Rate: 10 to 29 per min(4); Gianfranco Score: 15; Trauma Score: 12 11:14 Eye Response: spontaneous(1); Verbal Response: oriented(1); Motor Response: obeys ph commands(2); Systolic BP: > 89 mm Hg(4); Respiratory Rate: 10 to 29 per min(4); Flintstone Score: 15; Trauma Score: 12 ED Course: 09:58 Patient arrived in ED. ph 10:01 Triage completed. ph 10:03 Rosetta Figueroa FNP-C is [facility]. kb 10:03 Bony Ramos MD is Attending Physician. kb 10:34 CT Head Brain wo Cont In Process Unspecified. EDMS 11:08 Jnenifer Goetz, RN is Primary Nurse. ph 11:19 Arm band placed on. ph 11:21 Patient has correct armband on for positive identification. Bed in low position. Call ph light in reach. Side rails up X2. Pulse ox on. NIBP on. Warm blanket given. 11:23 Patient maintains SpO2 saturation greater than 95% on room air. Thermoregulation: warm ph blanket given to patient. 11:29 No provider procedures requiring assistance completed. Patient did not have IV access ph during this emergency room visit. Administered Medications: No medications were administered Point of Care Testing: Blood Glucose: 11:14 Blood Glucose: 124 mg/dL; ph Ranges: Intake: 10:01 PO: 0ml; Total: 0ml. ph 11:14 PO: 0ml; Total: 0ml. ph Output: 10:01 Urine: 0ml; Total: 0ml. ph 11:14 Urine: 0ml; Total: 0ml. ph Outcome: 10:56 Discharge ordered by . kb 11:48 Discharged to [facility]. Report called to Christin ph 11:48 Condition: good 11:48 Discharge instructions given to family, [facility], Instructed on discharge instructions, follow up and referral plans. Demonstrated understanding of instructions, follow-up care. 11:49 Patient's length of stay was not longer than 2 hours. ph 11:49 Patient left the ED. ph Signatures: Dispatcher [employer] EDPR Rosetta Figueroa FNP-C FNP-Ckb Hall, Patricia RN RN ph Corrections: (The following items were deleted from the chart) 11:17 10:30 Breathing/Chest: Respiratory pattern: ph ph
[2017-12-20 11:54] VITALS: TEMP 97.7; O2SAT 94
[2017-12-20 11:55] VITALS: BP 116/68
== END 2017-12-20 11:49 | disposition home or self-care (01) ==
LOC: ER 09:55
DX: S00.90XA Unspecified superficial injury of unspecified part of head, initial encounter (principal); W01.0XXA Fall on same level from slipping, tripping and stumbling without subsequent striking against object, initial encounter; Y93.89 Activity, other specified; Y92.003 Bedroom of unspecified non-institutional (private) residence as the place of occurrence of the external cause; E11.9 Type 2 diabetes mellitus without complications; Z79.01 Long term (current) use of anticoagulants; Z86.73 Personal history of transient ischemic attack (TIA), and cerebral infarction without residual deficits; Z85.118 Personal history of other malignant neoplasm of bronchus and lung; Z86.718 Personal history of other venous thrombosis and embolism
CPT/HCPCS: 70450; 82962; 99284

== ENCOUNTER 2017-12-22 10:26 | Emergency (ER) | payer OTHER ==
[2017-12-22 11:28] LABS: Absolute Lymphocytes (CBC) 0.3 K/uL (0.7-4.9); Absolute Monocytes 0.5 K/uL (0.1-1.3); Absolute Neutrophil 4.8 K/uL (1.8-8.0); Basophils % 0.1 % (0-1.3); Eosinophils % 0.9 % (0-4.4); Hematocrit 36.2 % (39.6-49.0); MCH 31.5 pg (27.0-35.0); MCV 95.2 fL (80-100); MPV 9.1 fL (7.6-11.3); Monocytes % 8.6 % (3.3-12.3)
[2017-12-22 11:30] LABS: Protime INR 2.01
[2017-12-22 11:32] LABS: Potassium 4.4 mEq/L (3.6-5.0)
[2017-12-22 11:44] LABS: Albumin 3.9 g/dL (3.2-5.5); Bilirubin Direct 0.1 mg/dL (0-0.2); Bilirubin Total 0.7 mg/dL (0.3-1.2); CKMB Creatine Kinase MB 2.7 ng/ml (0.3-4.0); Magnesium 1.5 mg/dL (1.8-2.5); Protein, Total 7.3 g/dL (6.0-8.3)
--- NOTE | 2017-12-22 11:55 | RAD REPORT ---
EXAM DESCRIPTION: CT - Head C Spine Cap Wo Con - 12/22/2017 11:23 am CLINICAL HISTORY: Trauma, head and neck injury. Chest, abdomen and pelvis pain. COMPARISON: 12/20/2017, 10/13/2016, 09/12/2016 TECHNIQUE: CT head without contrast. CT cervical spine without contrast with coronal and sagittal reformatted images. CT chest, abdomen and pelvis without contrast with coronal and sagittal reformatted images of the spi ne. All CT scans are performed using dose optimization technique as appropriate and may include automated exposure control or mA/KV adjustment according to patient size. FINDINGS: CT HEAD WITHOUT CONTRAST: 3 mm acute subdural hematoma is seen along the left temporal convexity. No hydrocephalus. No signific ant midline shift is seen. Moderate brain atrophy is present with moderate periventricular deep white matter chronic microvascular ischemic changes. The paranasal sinuses and mastoids are clear. The calvarium is intact. CT CERVICAL SPINE WITHOUT CONTRAST: No fracture or subluxation. Moderate midcervical degenerative changes are noted. The prevertebral sof t tissues are normal in thickness. CT CHEST, ABDOMEN, PELVIS WITHOUT CONTRAST: NOTE: Lack of contrast is a significant limitation in the assessment of trauma related findings. Spec ifically, solid organ, vascular and bowel evaluation is significantly limited. Emphysematous changes are present throughout the lungs with postsurgical scarring in the left apex se en. Postsurgical changes are also present in the right lower lobe with mucus plugging suspected withi n areas of bronchiectasis. This appears unchanged since prior CT imaging.No evidence of mediastinal h ematoma.No pneumothorax or pericardial/pleural fluid. No evidence of intra-abdominal visceral injury, free fluid or free air is seen within the above detai led limitations. Bilobed abdominal aortic aneurysm again noted, measuring 6 cm greatest dimension, un changed. Bilateral renal calculi again noted, without significant change or hydronephrosis. Soft tiss ue collection anterior to the left hip measuring 6 cm is also unchanged. This may be the area chronic bursitis. Left total hip arthroplasty is present. The appendix is normal. Biliary tree dilatation is seen with cholecystectomy clips. IVC filter is in place. High-grade compression deformity affects T8 vertebral body, the surrounding paraspinal tissues at thi s level (image 29 of 128) appear mildly thickened. IMPRESSION: Acute left-sided subdural hematoma measuring 3 mm without measurable midline shift. High-grade compression fracture affecting T8 vertebral body with mild thickening of the surrounding p araspinal tissues. This favors an acute or subacute time frame for the fracture. No canal compromise. Multiple additional chronic findings as described. Findings were discussed with the DUGLAS Ingram in the ER 11:51 am on 12/22/2017 by telephone.
--- NOTE | 2017-12-22 12:58 | RAD REPORT ---
EXAM DESCRIPTION: RAD - Shoulder Left 2 View - 12/22/2017 11:45 am CLINICAL HISTORY: Fall, left shoulder pain COMPARISON: None. FINDINGS: Postsurgical changes are present left apex. No acute fracture or dislocation left shoulder .
--- NOTE | 2017-12-22 12:59 | RAD REPORT ---
EXAM DESCRIPTION: RAD - Knee Right 3 View - 12/22/2017 11:46 am CLINICAL HISTORY: Fall, knee pain COMPARISON: None. FINDINGS: Mild patella dilip is noted. Heavy vascular calcifications are seen. No suprapatellar joint effusion. No fracture or dislocation identified.
--- NOTE | 2017-12-22 13:11 | ER ---
Nurse's Notes [facility] Name: Viral Kim Age: 82 yrs Sex: Male : 1935 Arrival Date: 12/22/2017 Time: 10:34 Bed 6 Private MD: Diagnosis: Traumatic subdural hemorrhage;Thoracic Compression fracture, T8;Hypomagnesemia Presentation: 12/22 10:35 Presenting complaint: Child states: pt fell off bed this morning at [facility] assisted living facility, was found by staff on floor, was able to use call portillo to ask for help, pt has abrasion to top left side of head, abrasion to left shoulder, right knee abrasion, pt had similar fall 2 days ago at [facility]. Care prior to arrival: None. Mechanism of Injury: Fall out of bed. Trauma event details: Injury occurred in the [facility], Injury occurred: in an institution. Injury occurred: December 22, 2017. 10:35 Method Of Arrival: Wheelchair iw 10:35 Acuity: BONG 3 iw 10:39 Transition of care: patient was not received from another setting of care. Onset of iw symptoms was December 22, 2017. Initial Sepsis Screen: Does the patient meet any 2 criteria? No. Patient's initial sepsis screen is negative. Does the patient have a suspected source of infection? No. Patient's initial sepsis screen is negative. Trauma Activation: Not Applicable Physician: ED Physician; Name: ; Notified At: ; Arrived At: Physician: General Surgeon; Name: ; Notified At: ; Arrived At: Physician: Radiology; Name: ; Notified At: ; Arrived At: Physician: Respiratory; Name: ; Notified At: ; Arrived At: Physician: Lab; Name: ; Notified At: ; Arrived At: Historical: - Allergies: 11:01 NKA; iw - Home Meds: 11:01 acetaminophen 500 mg Oral tab 2 tabs every 6 hours for temp or pain, Fever, Pain iw [Active]; atorvastatin 40 mg Oral tab [Active]; cetirizine 10 mg Oral tab 1 tab once daily [Active]; cyclobenzaprine 10 mg Oral tab 1 tab nightly [Active]; docusate sodium 100 mg Oral tab 1 tab once daily [Active]; donepezil 10 mg Oral tab 1 tab twice a day [Active]; Eliquis 5 mg Oral tab 1 tab 2 times per day [Active]; ferrous gluconate 325 mg (37 mg iron) Oral tab twice a day [Active]; Fish Oil 1,000 mg Oral cap [Active]; memantine 10 mg Oral tab 0.5 tab 2 times per day [Active]; metformin 500 mg Oral tab 1 tab 2 times per day [Active]; metoprolol tartrate 25 mg Oral tab 0.5 tab 2 times per day [Active]; Multiple Vitamins Oral tab 1 tab daily [Active]; pantoprazole 40 mg Oral TbEC 1 tab once daily [Active]; ProAir HFA 90 mcg/actuation inhalation HFAA 1 puff every 4 hours for Breathing [Active]; Symbicort inhalation [Active]; - PMHx: 11:01 AAA; COPD; CVA; Depression; Diabetes - NIDDM; DVT; Left Femur; Lung CA; iw - PSHx: 11:01 Hip Replacement (Left); Lung (Portions removed from left and right); Leg (Left Femur); iw IVC; - Immunization history:: Adult Immunizations up to date. - Immunization history: Last tetanus immunization: - up to date. - Social history:: Smoking status: Patient/guardian denies using tobacco. Screenin:00 Abuse screen: Denies threats or abuse. Denies injuries from another. Nutritional sg screening: No deficits noted. Tuberculosis screening: No symptoms or risk factors identified. Never had TB. Fall Risk None identified. Primary Survey: 10:35 A: Airway: patent, No supplemental oxygen in use on arrival. Oral cavity: clear, sg Trachea midline. Breathing/Chest: Respiratory pattern: regular, Respiratory effort: spontaneous, unlabored, Breath sounds: clear, Chest inspection: symmetrical rise and fall of the chest. Circulation: Heart tones present. Pulses: palpable right radial artery, right dorsalis pedis artery, left radial artery and left dorsalis pedis artery. Skin color: pink, Skin temperature: warm. Disability Alert. 10:50 Reassessment Airway Airway Patent Oxygen No O2 Breathing/Chest Respiratory pattern sg Regular Respiratory effort Spontaneous Unlabored Breath sounds Clear Chest inspection Symmetrical Circulation Heart tones Present Pulses Palpable Color [place] Temperature Warm Disability Alert. 11:50 Reassessment Airway Airway Patent Oxygen No O2 Breathing/Chest Respiratory pattern sg Regular Respiratory effort Spontaneous Unlabored Breath sounds Clear Chest inspection Symmetrical Circulation Heart tones Present Pulses Palpable Color [place] Temperature Warm. 12:50 Reassessment Airway Airway Patent Oxygen No O2 Breathing/Chest Respiratory pattern sg Regular Respiratory effort Spontaneous Unlabored Breath sounds Clear Chest inspection Symmetrical Circulation Heart tones Present Pulses Palpable Color [place] Temperature Warm Disability Alert. Secondary Survey: 10:35 HEENT: No deficits noted. Head Other abrasion noted to scalp Face No injury/deformity sg Eyes: No injury or deformity noted. Ears: clear bilaterally. Nose: clear to bilateral nares. Throat: No injury or deformity noted. is clear with gag reflex present. Gastrointestinal: Abdomen is soft, non-distended, Bowel sounds present in all quadrants. Palpation No deficit noted. : No signs and/or symptoms were reported regarding the genitourinary system. Musculoskeletal: Circulation, motion, and sensation intact. Capillary refill is brisk, in bilateral fingers. toes. Range of motion: intact in all extremities, Swelling absent. Injury Description: Abrasion sustained to forehead is clean, no bleeding noted. Assessment: 11:00 General: Appears in no apparent distress. comfortable, well groomed, well developed, sg well nourished, Behavior is calm, cooperative, appropriate for age. Pain: Complains of pain in head and left hip. Neuro: Level of Consciousness is awake, alert, obeys commands, Oriented to person, place, Speech is normal, Facial symmetry appears normal. Cardiovascular: Heart tones S1 S2 present Capillary refill is brisk in bilateral fingers Patient's skin is warm and dry. Chest pain is denied. Respiratory: Airway is patent Respiratory effort is even, unlabored, Respiratory pattern is regular, symmetrical, Breath sounds are clear bilaterally. GI: Abdomen is round non-distended, Bowel sounds present X 4 quads. Abd is soft X 4 quads. : No signs and/or symptoms were reported regarding the genitourinary system. EENT: No signs and/or symptoms were reported regarding the EENT system. Derm: Skin is intact, is thin, Skin is pink, warm \T\ dry. Musculoskeletal: Circulation, motion, and sensation intact. Reports pain in left hip. 12:06 Reassessment: Patient appears in no apparent distress at this time. Patient and/or sg family updated on plan of care and expected duration. Pain level reassessed. Hemanth ARDON at bedside for update on results with POA, updated on need for transfer, pt POA reports that his care is maintained by the [facility] and requests he be transferred there. Hemanth ARDON stated understanding, will continue to monitor. 12:19 Reassessment: Dr. Sun speaking with family on phone, discussing POC. iw 12:57 Reassessment: Patient appears in no apparent distress at this time. POA for pt updated sg on lab results, pt POA stated understanding of magnesium level and the order to replace the magnesium levels, pt POA refused medication at this time, will continue to monitor, awaiting dispo at this time. 13:02 Reassessment: Patient appears in no apparent distress at this time. Bony Jessica at bedside speaking with Faraz Dejesus with [facility] RN on speaker phone discussing POC and home care needs. Current POC for home includes Faraz Dejesus are to stay in the residence with the patient for care and supervision until David Taveras with [facility] arranges [facility] for the pt in the residence. pt to be transported from the ED via private vehicle as requested by Ashley Dejesus POA for pt. Vital Signs: 10:35 BP 128 / 76; Pulse 72; Resp 18 S; Temp 98.2(TE); Pulse Ox 96% on R/A; Pain 4/10; iw 12:07 BP 106 / 70; Pulse 74 MON; Resp 17; Pulse Ox 97% on R/A; Pain 4/10; sg 12:30 BP 130 / 74; Pulse 76; Resp 16; Pulse Ox 96% on R/A; sg Gianfranco Coma Score: 10:35 Eye Response: spontaneous(4). Verbal Response: oriented(5). Motor Response: obeys iw commands(6). Total: 15. Trauma Score (Adult): 10:35 Eye Response: spontaneous(1); Verbal Response: oriented(1); Motor Response: obeys iw commands(2); Systolic BP: > 89 mm Hg(4); Respiratory Rate: 10 to 29 per min(4); Gianfranco Score: 15; Trauma Score: 12 ED Course: 10:34 Patient arrived in ED. iw 10:38 Bony Franco PA is PHCP. cp 10:38 Thiago Sun MD is Attending Physician. cp 10:39 Triage completed. iw 10:49 Francis Aleman, RN is Primary Nurse. sg 10:50 No provider procedures requiring assistance completed. sg 10:50 Patient maintains SpO2 saturation greater than 95% on room air. Thermoregulation: warm sg blanket given to patient. 10:50 Arm band placed on. sg 11:00 EKG done, by ED staff, reviewed by Bony ARDON. sv 11:05 Patient has correct armband on for positive identification. Bed in low position. Call sv light in reach. Side rails up X2. Adult w/ patient. monitoring coordinator on. Pulse ox on. NIBP on. 11:10 Initial lab(s) drawn, by me, sent to lab. Inserted saline lock: 20 gauge in right sv antecubital area, using aseptic technique. ,using aseptic technique. done by Francis Muse RN Blood collected. 11:[address] via stretcher. sv 11:22 CT completed. Patient tolerated procedure well. Patient moved to radiology. cw1 11:23 CT Traumagram (Head C Spine CAP wo con) In Process Unspecified. EDMS 11:34 Awaiting lab results, Awaiting radiology results. sg 11:46 XRAY Shoulder LEFT 2 view In Process Unspecified. EDMS 11:46 XRAY Knee RIGHT 3 view In Process Unspecified. EDMS 12:05 Rigid cervical collar applied and checked by physician. sg 12:19 [facility] and was told they ag will call back. 12:40 IV discontinued, intact, bleeding controlled, No redness/swelling at site. Pressure sg dressing applied. Administered Medications: 12:56 Not Given (POA refused medication at this time): Magnesium Sulfate 2 grams IVPB once sg over 2 hrs Point of Care Testing: Blood Glucose: 11:10 Blood Glucose: 158 mg/dL; sv Ranges: Intake: 13:20 PO: 0ml; Total: 0ml. sg Output: 13:20 Urine: 0ml; Total: 0ml. sg Outcome: 13:10 Discharge ordered by . cp 13:20 Discharged to home via wheelchair, with family. sg 13:20 Condition: good 13:20 Patient's length of stay in the Emergency Department was greater than 2 hours. Patient's length of stay was extended due to staffing issues within the emergency department. 13:20 Discharge instructions given to patient, family, hospice social worker, Instructed on discharge sg instructions, follow up and referral plans. safety practices, Demonstrated understanding of instructions, follow-up care. 13:26 Patient left the ED. ag Signatures: Dispatcher [employer] EDBreana Tom, RN Francis Kerr RN RN sg Williams, Irene, RN RN iw Woodley, Crystal cw1 Carolyn Nova Corey, PA PA cp Corrections: (The following items were deleted from the chart) 10:42 10:35 Presenting complaint: Child states: pt fell off bed this morning at [facility] assisted living facility, was found by staff on floor, was able to use call portillo to ask for help, pt has abrasion to top left side of head, abrasion to left shoulder, right knee abrasion, pt had similar fall yesterday at [facility] 10:42 10:35 Acuity: BONG 4 iw iw 10:58 10:30 BP 128 / 76; Pulse 72bpm; Resp 18bpm; Spontaneous; Pulse Ox 96% RA; Temp 98.2F iw Temporal; Pain 11/19; iw
--- NOTE | 2017-12-22 13:11 | EDPHYS ---
Physician Documentation [facility] Name: Viral Kim Age: 82 yrs Sex: Male : 1935 Arrival Date: 12/22/2017 Time: 10:34 Bed 6 Private MD: ED Physician Thiago Sun HPI: 12/22 11:00 This 82 yrs old Male presents to ER via Wheelchair with complaints of Fall cp Injury. 11:00 Family member reports patient is a resident of [facility] and was found cp on ground near bed this morning. Unknown downtime. Patient seen in ED 2 days ago after a fall while attempting to get out of bed. 11:00 Unable to obtain HPI due to baseline dementia, patient given prescribed pain cp medication, oral morphine, prior to arrival. Historical: - Allergies: 11:01 NKA; iw - Home Meds: 11: acetaminophen 500 mg Oral tab 2 tabs every 6 hours for temp or pain, Fever, Pain iw [Active]; atorvastatin 40 mg Oral tab [Active]; cetirizine 10 mg Oral tab 1 tab once daily [Active]; cyclobenzaprine 10 mg Oral tab 1 tab nightly [Active]; docusate sodium 100 mg Oral tab 1 tab once daily [Active]; donepezil 10 mg Oral tab 1 tab twice a day [Active]; Eliquis 5 mg Oral tab 1 tab 2 times per day [Active]; ferrous gluconate 325 mg (37 mg iron) Oral tab twice a day [Active]; Fish Oil 1,000 mg Oral cap [Active]; memantine 10 mg Oral tab 0.5 tab 2 times per day [Active]; metformin 500 mg Oral tab 1 tab 2 times per day [Active]; metoprolol tartrate 25 mg Oral tab 0.5 tab 2 times per day [Active]; Multiple Vitamins Oral tab 1 tab daily [Active]; pantoprazole 40 mg Oral TbEC 1 tab once daily [Active]; ProAir HFA 90 mcg/actuation inhalation HFAA 1 puff every 4 hours for Breathing [Active]; Symbicort inhalation [Active]; - PMHx: 11:01 AAA; COPD; CVA; Depression; Diabetes - NIDDM; DVT; Left Femur; Lung CA; iw - PSHx: 11:01 Hip Replacement (Left); Lung (Portions removed from left and right); Leg (Left Femur); iw IVC; - Immunization history:: Adult Immunizations up to date. - Immunization history: Last tetanus immunization: - up to date. - Social history:: Smoking status: Patient/guardian denies using tobacco. ROS: 11:05 Constitutional: Negative for fever. cp 11:05 Back: Positive for pain at rest. cp 11:05 MS/extremity: Positive for contusion, of the scalp. 11:05 Unable to obtain ROS due to baseline dementia. Exam: 11:08 ECG was reviewed by the Attending Physician. cp 11:15 Constitutional: The patient appears in no acute distress, alert, awake, cp non-diaphoretic, non-toxic, well developed, frail. 11:15 Head/face: Noted is hematoma, that is mild, of the forehead. cp 11:15 Eyes: Periorbital structures: appear normal, Pupils: pinpoint, bilaterally, Extraocular movements: intact throughout, Conjunctiva: normal, no exudate, no injection, Sclera: no appreciated abnormality, Lids and lashes: appear normal, bilaterally. 11:15 ENT: External ear(s): are unremarkable, Ear canal(s): are normal, clear, TM's: bulging, is not appreciated, bilaterally, dullness, bilaterally, erythema, is not appreciated, bilaterally, Nose: is normal, Mouth: Lips: dry, Oral mucosa: dry, Posterior pharynx: Airway: no evidence of obstruction, patent, Uvula: midline, non-edematous, no erythema, swelling, is not appreciated, erythema, is not appreciated, exudate, is not appreciated. 11:15 Neck: C-spine: vertebral tenderness, is not appreciated, crepitus, is not appreciated, ROM/movement: limited range of motion, is not appreciated, nuchal rigidity, is not appreciated. 11:15 Chest/axilla: Inspection: normal, Palpation: is normal, no crepitus, no tenderness. 11:15 Cardiovascular: Rate: normal, Rhythm: regular, Pulses: Pulses are 2+ in right radial artery and left radial artery. Edema: is not appreciated, JVD: is not appreciated. 11:15 Respiratory: the patient does not display signs of respiratory distress, Respirations: normal, no use of accessory muscles, no retractions, no splinting, no tachypnea, labored breathing, is not present, Breath sounds: are clear throughout, no decreased breath sounds, no stridor, no wheezing. 11:15 Abdomen/GI: Inspection: abdomen appears normal, Bowel sounds: active, all quadrants, Palpation: abdomen is soft and non-tender, in all quadrants, rebound tenderness, is not appreciated, voluntary guarding, is not appreciated, involuntary guarding, is not appreciated. 11:15 Back: vertebral tenderness, is not appreciated, Straight leg raises: of both lower extremities does not illicit pain. 11:15 Musculoskeletal/extremity: Extremities: grossly normal except: noted in the left shoulder and right knee: contusion, superficial, ROM: full active range of motion, in all extremities. 11:15 Skin: cellulitis, is not appreciated, no rash present. 11:15 Neuro: Orientation: to person, Mentation: able to follow commands, slow to respond, cp Cerebellar function: Romberg testing is negative, Motor: moves all fours, strength is normal, Sensation: no obvious gross deficits, Gait: not tested. Vital Signs: 10:35 BP 128 / 76; Pulse 72; Resp 18 S; Temp 98.2(TE); Pulse Ox 96% on R/A; Pain 4/10; iw 12:07 BP 106 / 70; Pulse 74 MON; Resp 17; Pulse Ox 97% on R/A; Pain 4/10; sg 12:30 BP 130 / 74; Pulse 76; Resp 16; Pulse Ox 96% on R/A; sg [place] Coma Score: 10:35 Eye Response: spontaneous(4). Verbal Response: oriented(5). Motor Response: obeys iw commands(6). Total: 15. Trauma Score (Adult): 10:35 Eye Response: spontaneous(1); Verbal Response: oriented(1); Motor Response: obeys iw commands(2); Systolic BP: > 89 mm Hg(4); Respiratory Rate: 10 to 29 per min(4); Gianfranco Score: 15; Trauma Score: 12 MDM: 10:43 Patient medically screened. cp 11:00 Differential diagnosis: closed head injury, contusion, fracture, laceration, multiple cp trauma. 12:15 Data reviewed: vital signs, nurses notes, lab test result(s), EKG, radiologic studies, cp CT scan, plain films. 12:15 Test interpretation: by ED physician or midlevel provider: ECG, plain radiologic cp studies. 13:04 ED course: VSS. Spoke with Ashley Dejesus, holds medical power of contract attorney, would like cp patient to be discharged back to [facility] for continued palliative care. Results of labs, EKG and radiology studies were explained in detail. Family do not want further evaluation by neurosurgery at this time and understand risk of , decreasing health. 12/22 10:55 Order name: Basic Metabolic Panel; Complete Time: 11:53 12/22 12:12 Interpretation: Normal except: GLUC 171; BUN 28; CRE 1.64; GFR 40. 12/22 10:55 Order name: BNP; Complete Time: 12:15 12/22 12:16 Interpretation: Reviewed. 12/22 10:55 Order name: CBC with Diff; Complete Time: 11:53 12/22 12:12 Interpretation: Normal except: RBC 3.80; HGB 12.0; HCT 36.2; MCV 95.2; RDW 17.0; SAGE% cp 84.4; LYM% 6.0; LYMA 0.3. 12/22 10:55 Order name: Ckmb; Complete Time: 11:53 12/22 10:55 Order name: CPK; Complete Time: 11:53 12/22 10:55 Order name: LFT's; Complete Time: 11:53 12/22 12:13 Interpretation: Normal except: SGOT 76; SGPT 155; ALK 349. 12/22 10:55 Order name: CT Traumagram (Head C Spine CAP wo con); Complete Time: 11:59 12/22 10:55 Order name: Magnesium; Complete Time: 11:53 12/22 12:13 Interpretation: Abnormal: MG 1.5. 12/22 10:55 Order name: PT-INR; Complete Time: 11:53 12/22 12:13 Interpretation: Abnormal: PT 23.9. 12/22 10:55 Order name: Ptt, Activated; Complete Time: 11:53 12/22 10:55 Order name: Troponin (emerg Dept Use Only); Complete Time: 11:53 12/22 12:12 Interpretation: TROPED < 0.03; Reviewed. 12/22 10:55 Order name: XRAY Shoulder LEFT 2 view 12/22 10:55 Order name: XRAY Knee RIGHT 3 view 12/22 11:10 Order name: Glucose, Ancillary Testing; Complete Time: 11:53 EDPR 12/22 10:55 Order name: EKG; Complete Time: 10:55 12/22 10:55 Order name: Cardiac monitoring; Complete Time: 10:56 12/22 10:55 Order name: EKG - Nurse/Tech; Complete Time: 11: 12/22 10:55 Order name: IV Saline Lock; Complete Time: 11: 12/22 10:55 Order name: Labs collected and sent; Complete Time: 11: 12/22 10:55 Order name: O2 Per Protocol; Complete Time: 10:56 12/22 10:55 Order name: O2 Sat Monitoring; Complete Time: 10:56 EC:08 Rate is 71 beats/min. Rhythm is regular. CO interval is normal. QRS interval is normal. cp QT interval is normal. No ST changes noted. Interpreted by me. Reviewed by me. Administered Medications: 12:56 Not Given (POA refused medication at this time): Magnesium Sulfate 2 grams IVPB once sg over 2 hrs Point of Care Testing: Blood Glucose: 11:10 Blood Glucose: 158 mg/dL; sv Ranges: Critical Glucose Levels:Adult <50 mg/dl or >400 mg/dl <40 mg/dl or >180 mg/dl Disposition: 13:45 Chart complete. Disposition: 12/22/17 13:10 Discharged to Home. Impression: Traumatic subdural hemorrhage, Thoracic Compression fracture, T8, Hypomagnesemia. - Condition is Stable. - Discharge Instructions: Back, Compression Fracture, Hypomagnesemia, Intracranial Hemorrhage. - Medication Reconciliation Form, Thank You Letter, Antibiotic Education, Prescription Opioid Use form. - Follow up: Private Physician; When: As needed; Reason: Worsening of condition, Recheck today's complaints. - Problem is new. - Symptoms are unchanged. Addendum: 12/31/2017 05:50 Co-signature as Attending Physician, Thiago Sun MD I agree with the assessment and w a plan of care. Signatures: Dispatcher [employer] EDPR Rosetta Figueroa, KELVIN DONALDP-Francis Justice RN RN sg Devin, Cortney, RN Carolyn Gastelum Corey, PA PA cp Thiago Sun MD MD wa Corrections: (The following items were deleted from the chart) 12/22 12:43 12:14 [place] ordered. cp sg 13:12 13:10 12/22/2017 13:10 Discharged to Home. Impression: Traumatic subdural hemorrhage; cp Thoracic Compression fracture, T8. Condition is Stable. Forms are Medication Reconciliation Form, Thank You Letter, Antibiotic Education, Prescription Opioid Use. Follow up: Private Physician; When: As needed; Reason: Worsening of condition, Recheck today's complaints. Problem is new. Symptoms are unchanged. cp 13:26 13:12 12/22/2017 13:10 Discharged to Home. Impression: Traumatic subdural hemorrhage; ag Thoracic Compression fracture, T8; Hypomagnesemia. Condition is Stable. Discharge Instructions: Back, Compression Fracture, Intracranial Hemorrhage, Hypomagnesemia. Forms are Medication Reconciliation Form, Thank You Letter, Antibiotic Education, Prescription Opioid Use. Follow up: Private Physician; When: As needed; Reason: Worsening of condition, Recheck today's complaints. Problem is new. Symptoms are unchanged. cp
[2017-12-22 13:38] VITALS: BP 130/74; TEMP 98.2; O2SAT 96
--- NOTE | 2017-12-23 14:46 | EKG ---
Test Date: 2017-12-22 Test Time: 11:00:45 [employer]: JAVI MEASUREMENT RESULTS: Intervals: Rate: 71 [place]: 126 QRSD: 84 QT: 394 QTc: 428 [place]: P: 56 [place]: 126 QRS: 67 T: 57 INTERPRETIVE STATEMENTS: Normal sinus rhythm Possible Left atrial enlargement Borderline ECG Compared to ECG 10/30/2017 17:27:29 No significant changes Electronically Signed On 12-23-17 14:46:08 CDT by Allen Bradley
== END 2017-12-22 13:26 | disposition home or self-care (01) ==
LOC: ER 10:26
DX: S06.5X0A Traumatic subdural hemorrhage without loss of consciousness, initial encounter (principal); S22.060A Wedge compression fracture of T7-T8 vertebra, initial encounter for closed fracture; E83.42 Hypomagnesemia; W06.XXXA Fall from bed, initial encounter; Y93.9 Activity, unspecified; Y92.092 Bedroom in other non-institutional residence as the place of occurrence of the external cause; Z79.02 Long term (current) use of antithrombotics/antiplatelets; Z85.118 Personal history of other malignant neoplasm of bronchus and lung; E11.9 Type 2 diabetes mellitus without complications; J44.9 Chronic obstructive pulmonary disease, unspecified; F32.9 Major depressive disorder, single episode, unspecified; F03.90 Unspecified dementia, unspecified severity, without behavioral disturbance, psychotic disturbance, mood disturbance, and anxiety
CPT/HCPCS: 36415; 70450; 71250; 72125; 80048; 80076; 82550; 82553; 82962; 83735; 83880; 84484; 85025; 85610; 85730; 93005; 99285